=== PATIENT | female | born 1985 | race Caucasian/White ===

== ENCOUNTER 2016-08-02 21:32 | Emergency (ER) | payer BC, MEDICAID, OTHER ==
[2016-08-02] MEDS ORDERED: hydrOXYzine HCL TAB* 50 MG PO ONE (22:22)
[2016-08-02] MEDS ORDERED: hydrOXYzine HCL TAB* 25 MG ONE (22:28)
[2016-08-02 22:33] LABS: Urine Bacteria 2+ (Absent); Urine Bilirubin Negative (Negative); Urine Glucose Negative (Negative); Urine Nitrite Negative (Negative)
[2016-08-02] MEDS ORDERED: hydrOXYzine HCL TAB* 25 MG PO ONE (23:00)
[2016-08-02 23:02] LABS: Hematocrit 40 % (35-47); Hemoglobin 13.7 g/dl (12.0-16.0); Mean Corpuscular HGB Conc 35 g/dl (31-36); Mean Corpuscular Hemoglobin 33 pg (27-31); Mean Corpuscular Volume 96 fL (80-97); Mean Platelet Volume 7 um3 (7.4-10.4); Red Blood Count 4.13 10^6/ul (4.0-5.4); Red Cell Distribution Width 12 % (10.5-15); White Blood Count 7.4 10^3/ul (3.5-10.8)
[2016-08-02 23:17] VITALS: BP 118/57
[2016-08-02 23:19] LABS: ALT 12 U/L (7-52); AST 14 U/L (13-39); Albumin 3.9 g/dL (3.2-5.2); Alkaline Phosphatase 30 U/L (34-104); BUN/Creatinine Ratio 11.3 (8-20); Blood Urea Nitrogen 8 mg/dL (6-24); CO2 Carbon Dioxide 23 mmol/L (22-32); Calcium 9.1 mg/dL (8.6-10.3); Chloride 111 mmol/L (101-111); EGFR African American 126.1 (>60); Globulin 2.6 g/dL (2-4); Glucose 92 mg/dL (70-100); Sodium 131 mmol/L (133-145); Total Protein 6.5 g/dL (6.4-8.9)
[2016-08-02 23:27] LABS: Acetaminophen < 15 mcg/mL; Alcohol < 10 mg/dL (<10); Salicylate < 2.50 mg/dL (<30)
[2016-08-02 23:31] LABS: Anion Gap -3 mmol/L (2-11); Potassium 2.7 mmol/L (3.5-5.0)
[2016-08-02] MEDS ORDERED: Potassium Chlor TAB* 20 MEQ TAB.ER PO ONE (23:34)
--- NOTE | 2016-08-02 23:37 | ED ---
Kristine Cadet Claudia, scribed for Christofer Falcon MD on 08/02/16 at 2217 . Psychiatric Complaint - HPI Summary HPI Summary: 30 year old female presents to the ED with anxiety and panic attacks. Pt notes PMHx of anxiety. Pt began Zoloft 5 days ago per Rx . She notes that she has been suffering constant panic attacks for the past couple of days. Pt notes she even suffered a syncopal episode from the anxiety this week. She has been to [facility] several times this week, along with her PCP however nothing has seemed to help with her Sx. She went to her PCp on Thursday trying to get put on a different Rx but he would not prescribe atarax. Pt notes her anxiety is so bad that she is unable to live her life. Pt states CP and SOB accompanying the anxiety. - History Of Current Complaint Chief Complaint: EDMentalHealth Time Seen by Provider: 08/02/16 22:06 Hx Obtained From: Patient Hx Last Menstrual Period: 03/15/15, PT STATES SHE WORKS OUT VERY HARD AND DOES NOT HAVE REG PERIODS. Onset/Duration: Sudden Onset, Lasting Days, Still Present Timing: Constant Character: Anxious Aggravating Factor(s): Nothing Alleviating Factor(s): Nothing Has Suicidal: Denies: Thoughts - Allergies/Home Medications Allergies/Adverse Reactions: Allergies Allergy/AdvReac Type Severity Reaction Status Date / Time Penicillins Allergy Unknown Unknown Verified 05/06/15 10:13 Reaction Details PMH/Surg Hx/FS Hx/Imm Hx Previously Healthy: Yes Endocrine/Hematology History: Denies: Hx Diabetes Neurological History: Reports: Other Neuro Impairments/Disorders - Vertigo Psychiatric History: Reports: Hx Anxiety, Hx Depression, Hx Post Traumatic Stress Disorder, Hx Bipolar Disorder Denies: Hx Eating Disorder, Hx of Violent Episodes Against Others Infectious Disease History: No Infectious Disease History: Denies: Traveled Outside the [place] in Last 30 Days - Family History Known Family History: Positive: Diabetes, Other - bipolar disorder. PTSD grandfather, [place], anxiety, depression - Social History Occupation: Unemployed Lives: With Family Alcohol Use: None Substance Use Type: Reports: None Hx Tobacco Use: No Smoking Status (MU): Never Smoked Tobacco Review of Systems Constitutional: Negative Negative: Fever, Chills Eyes: Negative ENT: Negative Positive: Chest Pain Positive: Shortness Of Breath Gastrointestinal: Negative Genitourinary: Negative Musculoskeletal: Negative Skin: Negative Neurological: Negative Positive: Anxious All Other Systems Reviewed And Are Negative: Yes Physical Exam - Summary Physical Exam Summary: VITAL SIGNS: Reviewed. GENERAL: Patient is a well developed and nourished female who is lying comfortable in the stretcher. Patient is not in any acute respiratory distress. HEAD AND FACE: No signs of trauma. No ecchymosis, hematomas or skull depressions. No sinus tenderness. EYES: PERRLA, EOMI x 2, No injected conjunctiva, no nystagmus. EARS: Hearing grossly intact. Ear canals and tympanic membranes are within normal limits. MOUTH: Oropharynx within normal limits. NECK: Supple, trachea is midline, no adenopathy, no JVD, no carotid bruit, no c- spine tenderness, neck with full ROM. CHEST: Symmetric, no tenderness at palpation LUNGS: Clear to auscultation bilaterally. No wheezing or crackles. CVS: Regular rate and rhythm, S1 and S2 present, no murmurs or gallops appreciated. ABDOMEN: Soft, non-tender. No signs of distention. No rebound no guarding, and no masses palpated. Bowel sounds are normal. EXTREMITIES: FROM in all major joints, no edema, no cyanosis or clubbing. NEURO: Alert and oriented x 3. No acute neurological deficits. Speech is normal and follows commands. SKIN: Dry and warm PSYCH: no depressed mood, denies any suicidal thoughts or plan. No homicidal thoughts or plan. No signs of psychosis or pressure speech. No tangential speech. Patient seems very anxious and nervous. Triage Information Reviewed: Yes Vital Signs On Initial Exam: Initial Vitals Temp Pulse Resp BP Pulse Ox 98.4 F 78 16 121/65 100 08/02/16 21:40 08/02/16 21:40 08/02/16 21:40 08/02/16 21:40 08/02/16 21:40 Vital Signs Reviewed: Yes Diagnostics - Vital Signs Vital Signs Temp Pulse Resp BP Pulse Ox 08/02/16 21:40 98.4 F 78 16 121/65 100 - Laboratory Lab Results: Lab Results 08/02/16 08/02/16 Range/Units 22:22 22:50 WBC 7.4 (3.5-10.8) 10^3/ul RBC 4.13 (4.0-5.4) 10^6/ul Hgb 13.7 (12.0-16.0) g/dl Hct 40 (35-47) % MCV 96 (80-97) fL MCH 33 H (27-31) pg MCHC 35 (31-36) g/dl RDW 12 (10.5-15) % Plt Count 204 (150-450) 10^3/ul MPV 7 L (7.4-10.4) um3 Neut % (Auto) 66.1 (38-83) % Lymph % (Auto) 21.3 L (25-47) % [place] % (Auto) 10.2 H (1-9) % Eos % (Auto) 2.2 (0-6) % Baso % (Auto) 0.2 (0-2) % Absolute Neuts (auto) 4.9 (1.5-7.7) 10^3/ul Absolute Lymphs (auto) 1.6 (1.0-4.8) 10^3/ul Absolute Monos (auto) 0.8 (0-0.8) 10^3/ul Absolute Eos (auto) 0.2 (0-0.6) 10^3/ul Absolute Basos (auto) 0 (0-0.2) 10^3/ul Absolute Nucleated RBC 0 10^3/ul Nucleated RBC % 0 Urine Color Yellow Urine Appearance Clear Urine pH 7.0 (5-9) Ur Specific [place] 1.009 L (1.010-1.030) Urine Protein Negative (Negative) Urine Ketones Negative (Negative) Urine Blood Negative (Negative) Urine Nitrate Negative (Negative) Urine Bilirubin Negative (Negative) Urine Urobilinogen Negative (Negative) Ur Leukocyte Esterase Trace H (Negative) Urine WBC (Auto) Trace(0-5/hpf) (Absent) Urine RBC (Auto) Trace(0-2/hpf) (Absent) Ur Squamous Epith Cells Present H (Absent) Urine Bacteria 2+ H (Absent) Urine Glucose Negative (Negative) Result Diagrams: 08/02/16 22:50 08/02/16 22:50 Lab Statement: Any lab studies that have been ordered have been reviewed, and results considered in the medical decision making process. - EKG 22:11 Cardiac Rate: NL - NSR: 69 beats/min EKG Rhythm: Sinus Rhythm ST Segment: Normal - No ST elevation Course/Dx - Course Assessment/Plan: Presents with sever anxiety also CP and SOB. She has been dealing with Sx for the past 28 years. For the last 7 she has been taking klonopine, she has been not been taking klonopine for the past 7 months. Test results are within nml limits, except for decreased K+ for which she was given potasium chloride. troponin 0.00, EKG NSR with no ST elevation. The pt was given atarax for anxiety they decline ativan. At this point the pt is medically cleared and is awaiting MHE. She will be signed out to Dr. Vaz waiting for the MHE and disposition. - Differential Dx/Clinical Impression Provider Diagnosis: Anxiety - Physician Notifications Patient Is Medically Stable For: Psych Evaluation - medically cleared at 22:18 Discharge - Discharge Plan Condition: Stable Disposition: OTHER Discharge Disposition Comment: Signed out to Dr. Vaz. Referrals: Non Staff,Doctor [Primary Care Provider] - The documentation as recorded by the Kristine medina Claudia accurately reflects the service I personally performed and the decisions made by me, Christofer Falcon MD.
[2016-08-02 23:38] LABS: TSH (Thyroid Stimulating Horm) 2.98 mcIU/mL (0.34-5.60)
[2016-08-03] MEDS ORDERED: hydrOXYzine HCL TAB* 50 MG PO ONE (02:11)
[2016-08-03] MEDS ORDERED: Loperamide CAP* 2 MG PO ONE (05:43)
[2016-08-03] MEDS ORDERED: Potassium Chloride LIQUID* 20 MEQ PACKET PO ONE (05:43)
[2016-08-03] MEDS ORDERED: Potassium Chlor TAB* 20 MEQ TAB.ER PO ONE (06:11)
== END 2016-08-03 07:02 | disposition home or self-care (01) ==
LOC: ED 21:32
DX: F41.9 Anxiety disorder, unspecified (principal); R07.89 Other chest pain; R06.02 Shortness of breath; Z88.0 Allergy status to penicillin
CPT/HCPCS: 36415; 80053; 80320; 80329; 81003; 81015; 84443; 84484; 85025; 87086; 93005; 99284; A9270-GY; G0480

== ENCOUNTER 2017-06-27 10:38 | Emergency (ER) | payer OTHER ==
--- NOTE | 2017-06-27 12:42 | UC ---
General HPI - HPI Summary HPI Summary: per editor managing director "pt here today d/t noticing that her blood pressure has been on the low side for the past 2-3 days. She monitors her B/P daily and has been taking her B/P "approx 10 times in the past 2 days." She states feeling light headed and occ. will feel dizzy, no symptoms at triage. She states no fever, vomitting or diarrhea or any other symptoms. She states both parents are currently hospitalized for illness/surgery and "she is very stressed out". No thought of harm to her self or others. " -shew as dx'd with panic and takes signfiicant amts of xanax. she had elevated BP of 139 systolic with a panic attack and givena wrist BP monitor to check BPs when she feels this way. she feels comfoertable when BP is > 115. SHe just had personal training certificate test 3 days ago and was very stressed about it and passed. BP was nml that day. she drove to [place] and back since then and has been exhausted b/c little sleep as well. + h/o vertigo and has had some of that come back as well, but feels this isnt the problem. she was dx'd with this while she was in rehab in the past. -reviewed wrist cuff that she brings in, most are low 110 systolics. lowest seen is 109. -she has read obessively about this online. -she went to pharmacy befoer coming here. pharmacist suggested taking ibuprofen and coffee to raise BP. she took 200mgs and drank a coffee. no water yet today. he adv her to come to and told her about a pill that can be prescribed. -she denies syncope or near syncope. -she states that she is obsessed w/ exercising and she cant not go to the gym daily. - History of Current Complaint Chief Complaint: UCGeneralIllness Stated Complaint: DIZZINESS/LIGHTHEADEDNESS Time Seen by Provider: 06/27/17 12:39 Hx Last Menstrual Period: 10 mos ago-is seeing a registered route associate doc for this issue - Allergy/Home Medications Allergies/Adverse Reactions: Allergies Allergy/AdvReac Type Severity Reaction Status Date / Time Penicillins Allergy Unknown Unknown Verified 05/06/15 10:13 Reaction Details Home Medications: Home Medications ALPRAZolam TAB* [Xanax TAB*] 0.25 mg PO TID 06/27/17 [History Confirmed 06/27/17 ] Alprazolam XR (NF) [Xanax XR (NF)] 2 mg PO BID 06/27/17 [History Confirmed 06/27] Escitalopram Oxalate [Lexapro 10 mg] 2.5 mg PO DAILY 06/27/17 [History Confirmed 06/27/17] PMH/Surg Hx/FS Hx/Imm Hx Previously Healthy: Yes Psychological History: Anxiety - Surgical History Surgical History: None - Family History Known Family History: Positive: Diabetes, Other - bipolar disorder. PTSD grandfather, [place], anxiety, depression - Social History Alcohol Use: None Substance Use Type: None Smoking Status (MU): Never Smoked Tobacco - Immunization History Most Recent Influenza Vaccination: Never Most Recent Tetanus Shot: December 2015 Most Recent Pneumonia Vaccination: Never Review of Systems Constitutional: Negative Skin: Negative Eyes: Negative ENT: Negative Respiratory: Negative Cardiovascular: Negative Gastrointestinal: Negative Genitourinary: Negative Motor: Negative Neurovascular: Negative Musculoskeletal: Negative Neurological: Other - lightheaded at times Psychological: Anxious Is Patient Immunocompromised?: No All Other Systems Reviewed And Are Negative: Yes Physical Exam Triage Information Reviewed: Yes Appearance: Well-Appearing, No Pain Distress, Well-Nourished Vital Signs: Initial Vital Signs Temp 97.9 F 06/27/17 11:19 Pulse 52 06/27/17 11:19 Resp 14 06/27/17 11:19 BP 111/73 06/27/17 11:19 Pulse Ox 100 06/27/17 11:19 Vital Signs Reviewed: Yes Eye Exam: Normal ENT Exam: Normal ENT: Positive: Pharynx normal Dental Exam: Normal Neck exam: Normal Neck: Positive: Supple, Nontender, No Lymphadenopathy Respiratory Exam: Normal Respiratory: Positive: Lungs clear, Normal breath sounds, No respiratory distress Cardiovascular Exam: Normal Cardiovascular: Positive: RRR, No Murmur, Pulses Normal Abdominal Exam: Normal Abdomen Description: Positive: Nontender, Soft Musculoskeletal Exam: Normal Neurological Exam: Normal Psychological Exam: Normal Skin Exam: Normal Course/Dx - Course Course Of Treatment: I sepnt quite a bit of time reassuring her. we discussed possibility of vaso-vagal reaction as well. advised to get down to the floor and elevate legs immediately if these symptoms occur. adv no driving with these sx. -discussed work up is most appropriately done through PCP as labs are indicated. BP manual recheck Left Lg 114/68. -she feels reassured that SBP > 110 is very safe range and is not cosidered problematic unless at least 90. - adv not to drink too much water (hasnt had any today). limit to 64 ozs. - discussed that giving medication (eg mididrine) is not indicated at this time w/ o further w/u, eval, labs etc. also, it is contraindictaed w/ high bPs (that she has gotten w/ panic attacks). -eating high salt snacks such as pretzels and salted nuts can help. -she feels better and reassured. - Differential Dx - Multi-Symptom Differential Diagnoses: Other - dizziness/hypotension Provider Diagnoses: dizziness Discharge - Discharge Plan Condition: Stable Disposition: HOME Patient Education Materials: Hypotension (ED) Forms: *Work Release Referrals: Delvis SPEARS,Robbie [Primary Care Provider] - 2 Days Additional Instructions: We talked quite a bit about your symptoms and blood pressure. Drink 64 oz water daily and no more than 1 bottle of gatorade per day (as you are doing). Work up through your primary care physician is warranted with blood work and even perhaps a cardiology referral for further evaluation/reassurance. Keep your appt on 06/29 that is already scheduled. -If your symptoms worsen, we talked about going to the ER.
[2017-06-27 13:18] VITALS: BP 114/68
== END 2017-06-27 13:34 | disposition home or self-care (01) ==
LOC: UCCORT 10:38
DX: R42 Dizziness and giddiness (principal); Z88.0 Allergy status to penicillin; F41.9 Anxiety disorder, unspecified
CPT/HCPCS: 99211; G0463

== ENCOUNTER 2017-08-03 16:38 | Emergency (ER) | payer OTHER ==
[2017-08-03 18:02] VITALS: BP 111/66
--- NOTE | 2017-08-03 18:13 | UC ---
Complaint Female HPI - HPI Summary HPI Summary: Pt c/o of painful urination X 2 days. Post intercourse. Also, c/o tender area on right labia. Pt states that she shaves her genital pubic heair and used a new razor and thinks she had cut /"nicked" her labia - History Of Current Complaint Stated Complaint: URINARY COMPLAINT Time Seen by Provider: 08/03/17 18:00 Hx Obtained From: Patient Hx Last Menstrual Period: DUE ANYTIME ?: No Onset/Duration: Sudden Onset Timing: Intermittent Severity Initially: Mild Severity Currently: Mild Character: Burning Aggravating Factor(s): Urination Associated Signs And Symptoms: Positive: Negative - Allergies/Home Medications Allergies/Adverse Reactions: Allergies Allergy/AdvReac Type Severity Reaction Status Date / Time Penicillins Allergy Unknown Unknown Verified 08/03/17 18:02 Reaction Details PMH/Surg Hx/FS Hx/Imm Hx Previously Healthy: Yes - Surgical History Surgical History: None - Family History Known Family History: Positive: Diabetes, Other - bipolar disorder. PTSD grandfather, [place], anxiety, depression - Social History Occupation: Employed Full-time Lives: With Family Alcohol Use: None Substance Use Type: None Smoking Status (MU): Never Smoked Tobacco Have You Smoked in the Last Year: No - Immunization History Most Recent Influenza Vaccination: Never Most Recent Tetanus Shot: December 2015 Most Recent Pneumonia Vaccination: Never Review of Systems Constitutional: Negative Skin: Other - acute wound Eyes: Negative ENT: Negative Respiratory: Negative Cardiovascular: Negative Gastrointestinal: Negative Genitourinary: Dysuria Motor: Negative Neurovascular: Negative Musculoskeletal: Negative Neurological: Negative Psychological: Negative Is Patient Immunocompromised?: No All Other Systems Reviewed And Are Negative: Yes Physical Exam Triage Information Reviewed: Yes Appearance: Well-Appearing Vital Signs: Initial Vital Signs Temp 98.4 F 08/03/17 17:57 Pulse 55 08/03/17 17:57 Resp 18 08/03/17 17:57 BP 111/66 08/03/17 17:57 Pulse Ox 100 08/03/17 17:57 Vital Signs Reviewed: Yes Eye Exam: Normal ENT Exam: Normal Dental Exam: Normal Neck exam: Normal Respiratory Exam: Normal Cardiovascular Exam: Normal Abdominal Exam: Normal Musculoskeletal Exam: Normal Neurological Exam: Normal Psychological Exam: Normal Skin Exam: Other - small open, tender area on mid right labia. No vessicles, drainage, Complaint Female Dx - Course Course Of Treatment: I discussed with th ept the possibility of STD exposure and need to follow up with her PCP. At time of examination, the sore on her right labia was not vessicular, no drainage, no induration, and pt reported that she had used a new razor to shave her pubic hair and remembers "nicking" herself while shaving. Pt declined blood work and wound did not have drainage - Differential Dx/Diagnosis Differential Diagnosis/HQI/PQRI: Sexually Transmitted Disease, Urinary Tract Infection Provider Diagnoses: Dysuria. STD exposure? acute wound. Herpes simplex 1 or 2 ? Discharge - Discharge Plan Condition: Stable Disposition: HOME Prescriptions: Phenazopyridine TAB* [Pyridium 100 mg TAB*] 100 mg PO Q8H #3 tab Patient Education Materials: Acute Wound Care (ED), Dysuria (ED), Acute Wounds (ED) Referrals: Delvis SPEARS,Robbie [Primary Care Provider] - If Needed Additional Instructions: Please follow up with your PCP or return to clinic as needed.
== END 2017-08-03 18:49 | disposition home or self-care (01) ==
LOC: UCCORT 16:38
DX: R30.0 Dysuria (principal); S31.40XA Unspecified open wound of vagina and vulva, initial encounter; X58.XXXA Exposure to other specified factors, initial encounter; Y93.9 Activity, unspecified; Z88.0 Allergy status to penicillin; Z11.3 Encounter for screening for infections with a predominantly sexual mode of transmission; Z32.02 Encounter for pregnancy test, result negative; Y92.9 Unspecified place or not applicable
CPT/HCPCS: 81003; 84702; 87491; 87591; 99212; G0463

== ENCOUNTER 2017-09-14 13:04 | Emergency (ER) | payer OTHER ==
[2017-09-14 14:05] VITALS: BP 110/70
[2017-09-14] MEDS ORDERED: Ibuprofen ADULT LIQ* 600 MG/30 ML UDC PO ONE (14:18)
--- NOTE | 2017-09-14 14:23 | UC ---
UC General HPI - HPI Summary HPI Summary: pt c/o sudden PERES, head congestion, sore throat, bodyaches, cough and fever. onset thursday pm. no cp or sob. - History of Current Complaint Chief Complaint: UCRespiratory Stated Complaint: SORE THROAT Time Seen by Provider: 09/14/17 13:58 Hx Obtained From: Patient Hx Last Menstrual Period: unknown Onset/Duration: Sudden Onset Timing: Constant Pain Intensity: 9 Associated Signs & Symptoms: Positive: Cough, Fever, Headache. Negative: Chest Pain, Diarrhea, Dysuria, Nausea, SOB, Vomiting, Wheezing, Weakness - Allergy/Home Medications Allergies/Adverse Reactions: Allergies Allergy/AdvReac Type Severity Reaction Status Date / Time Penicillins Allergy Unknown Verified 09/14/17 13:51 Reaction Details Home Medications: Home Medications Cetirizine* [ZyrTEC 10 MG TAB*] 10 mg PO DAILY 09/14/17 [History Confirmed 09/14] PMH/Surg Hx/FS Hx/Imm Hx Psychological History: Anxiety, Depression - Surgical History Surgical History: None - Family History Known Family History: Positive: Diabetes, Other - bipolar disorder. PTSD grandfather, [place], anxiety, depression - Social History Occupation: Employed Full-time Alcohol Use: None Substance Use Type: Prescribed Smoking Status (MU): Never Smoked Tobacco Have You Smoked in the Last Year: No - Immunization History Most Recent Influenza Vaccination: Never Most Recent Tetanus Shot: December 2015 Most Recent Pneumonia Vaccination: Never Vaccination Up to Date: Yes Review of Systems Constitutional: Fever, Chills, Fatigue Skin: Negative Eyes: Negative ENT: Sore Throat, Sinus Congestion Respiratory: Cough Cardiovascular: Negative Gastrointestinal: Negative Genitourinary: Negative Motor: Negative Neurovascular: Negative Musculoskeletal: Negative Neurological: Headache Psychological: Negative Is Patient Immunocompromised?: No All Other Systems Reviewed And Are Negative: Yes Physical Exam Triage Information Reviewed: Yes Appearance: Well-Appearing Vital Signs: Initial Vital Signs Temp 99.5 F 09/14/17 13:56 Pulse 94 09/14/17 13:56 Resp 18 09/14/17 13:56 BP 110/70 09/14/17 13:56 Pulse Ox 100 09/14/17 13:56 Vital Signs Reviewed: Yes Eye Exam: Normal ENT: Positive: Pharyngeal erythema, Nasal congestion, TMs normal, Uvula midline. Negative: Tonsillar swelling, Tonsillar exudate, Trismus, Muffled voice, Hoarse voice, Sinus tenderness Neck: Positive: Supple, Tenderness @ - peritonsilar nodes, Enlarged Nodes @ - peritonsilar Respiratory: Positive: Lungs clear, Normal breath sounds, No respiratory distress Cardiovascular: Positive: RRR, No Murmur, Pulses Normal Abdomen Description: Positive: Nontender, No Organomegaly, Soft Bowel Sounds: Positive: Present Musculoskeletal: Positive: No Edema Neurological: Positive: Alert Psychological: Positive: Age Appropriate Behavior Skin Exam: Normal Diagnostics - Laboratory Diagnostic Studies Completed/Ordered: rapid strep=neg. influenza A + Course/Dx - Course Course Of Treatment: + influenza A. will tx tamiflu. - Differential Dx - Multi-Symptom Provider Diagnoses: Influenza A Discharge - Discharge Plan Condition: Stable Disposition: HOME Prescriptions: Oseltamivir CAP* [Tamiflu CAP*] 75 mg PO BID 5 Days #10 cap Patient Education Materials: Influenza (ED) Forms: *Work Release Referrals: Delvis SPEARS,Robbie [Primary Care Provider] - 7 Days
--- OUTSIDE RECORDS SUMMARY | 2017-09-14 14:37 | XMS REPORT ---
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 Robbie Edmondson MD Primary Care Physician Unavailable Payers Type Date Identification Numbers Payment Provider Subscriber Commercial Policy Number: [id number] [facility] Amy Ramon PayID: [id number] [address] [place] [id number] Problems Description No Information Social History Type Date Description Comments Smoke-Free Home is smoke-free Smoking Patient has never smoked Allergies, Adverse Reactions, Alerts Date Description Reaction Status Severity Comments 09/08/2017 Penicillin active Medications Medication Date Status Form Strength Qnty SIG Indications Ordering Provider Xanax XR 000000 Active Tablets ER 2mg Unknown 00 24HR Xanax 0000 Active Tablets 1mg Unknown 00 Escitalopram Active Tablets 5mg 1/2 Unknown Oxalate 00 tab qd Vital Signs Date Vital Result Comment 09/08/2017 BP Systolic 125 mmHg BP Diastolic 75 mmHg Height 62 inches 5'2" Weight 116.00 lb BMI (Body Mass Index) 21.2 kg/m2 Heart Rate 66 /min Respiratory Rate 16 /min Body Temperature 98.5 F O2 % BldC Oximetry 98 % Results Description No Information Procedures Description No Information Plan of Care No Information Available
--- OUTSIDE RECORDS SUMMARY | 2017-09-14 14:37 | XMS REPORT ---
:1985 External Reference #:[id number] Author Organization [facility] Address [address] [place] [address] Phone [phone] Care Team Providers Name Role Phone Robbie Edmondson MD Care Team Information Alternative Dispute Resolution Mediator Unavailable Robbie Edmondson MD Primary Care Physician Unavailable Payers Type Date Identification Numbers Payment Provider Subscriber Commercial Policy Number: [id number] [facility] Amy Ramon PayID: [id number] [address] [place] [address] Problems Date Description Provider Status Onset: 09/08/2017 Allergic rhinitis Jude [facility] MD Active Onset: 09/08/2017 Allergic rhinitis due to pollen Jude [facility] MD Active Social History Type Date Description Comments Smoke-Free Home is smoke-free Pets 1 cat Smoking Patient has never smoked Smoking No Second Hand Smoke Exposure Allergies, Adverse Reactions, Alerts Date Description Reaction Status Severity Comments 09/08/2017 Penicillin active Medications Medication Date Status Form Strength Qnty SIG Indications Ordering Provider Singulair 09/08/ Active Tablets 10mg 30tabs 10mg by J30.1 Jude Arechiga mouth Julissa [facility] MD daily at bedtime Cetirizine HCL 09/08/ Active Tablets 10mg 30tabs take one J30.1 Jude Arechiga tablet po Julissa [facility] MD daily prn Xanax XR 00/00/ Active Tablets 2mg Unknown 0000 ER 24HR Xanax 00/00/ Active Tablets 1mg Unknown 0000 Escitalopram 00/00/ Active Tablets 5mg 1/2 tab Unknown Oxalate 0000 qd Vital Signs Date Vital Result Comment 09/08/2017 BP Systolic 125 mmHg BP Diastolic 75 mmHg Height 62 inches 5'2" Weight 116.00 lb BMI (Body Mass Index) 21.2 kg/m2 Heart Rate 66 /min Respiratory Rate 16 /min Body Temperature 98.5 F O2 % BldC Oximetry 98 % Results Test Date Test Result H/L Range Note Order 09/08/2017 Skin Test Seasonal and Environmental <pending> Procedures Date CPT Code Description Status 09/08/2017 07744 Allergy Tests Percutaneous W/ Allergenic Extracts Completed Plan of Care 09/08/2017 - Jude [facility] MDJ30.1 Allergic rhinitis due to pollenNew Medication:Singulair 10 mgCetirizine HCL 10 mgJ30.89 Other allergic rhinitis
== END 2017-09-14 15:02 | disposition home or self-care (01) ==
LOC: UCCORT 13:04
DX: J10.1 Influenza due to other identified influenza virus with other respiratory manifestations (principal)
CPT/HCPCS: 87502; 87651; 99212; A9270-GY; G0463

== ENCOUNTER 2017-12-27 09:55 | Emergency (ER) | payer OTHER ==
[2017-12-27 10:41] VITALS: BP 100/62
--- NOTE | 2017-12-27 11:09 | UC ---
Complaint Female HPI - HPI Summary HPI Summary: patient has had some burning and itching on the genital area over the last week , developed a discharge and attempted monistat without relief. only use the one dose - History Of Current Complaint Chief Complaint: [facility] Stated Complaint: PERSONAL Time Seen by Provider: 12/27/17 10:49 Hx Obtained From: Patient Hx Last Menstrual Period: due for it in 3 days ?: No Onset/Duration: Sudden Onset, Lasting Days Timing: Lasting Days Severity Initially: Mild Severity Currently: None Pain Intensity: 0 Character: Burning Aggravating Factor(s): Nothing Associated Signs And Symptoms: Positive: Vaginal Discharge - Allergies/Home Medications Allergies/Adverse Reactions: Allergies Allergy/AdvReac Type Severity Reaction Status Date / Time Penicillins Allergy Unknown Verified 12/27/17 10:34 Reaction Details Home Medications: Home Medications Miconazole TOPICAL CREAM 2%* [Monistat 2%*] 1 applic TOPICAL DAILY 12/27/17 [ History Confirmed 12/27/17] PMH/Surg Hx/FS Hx/Imm Hx Previously Healthy: Yes - Surgical History Surgical History: None - Family History Known Family History: Positive: Diabetes, Other - bipolar disorder. PTSD grandfather, [place], anxiety, depression - Social History Alcohol Use: None Substance Use Type: Prescribed Smoking Status (MU): Never Smoked Tobacco Have You Smoked in the Last Year: No - Immunization History Most Recent Influenza Vaccination: Never Most Recent Tetanus Shot: December 2015 Most Recent Pneumonia Vaccination: Never Vaccination Up to Date: Yes Review of Systems Constitutional: Negative Skin: Rash - genital area Eyes: Negative ENT: Negative Respiratory: Negative Cardiovascular: Negative Gastrointestinal: Negative Genitourinary: Vaginal/Penile Itching, Vaginal/Penile Discharge Motor: Negative Neurovascular: Negative Musculoskeletal: Negative Neurological: Negative Psychological: Negative Is Patient Immunocompromised?: No All Other Systems Reviewed And Are Negative: Yes Physical Exam Triage Information Reviewed: Yes Appearance: Well-Appearing, Well-Nourished, Pain Distress Vital Signs: Initial Vital Signs Temp 98.7 F 12/27/17 10:35 Pulse 52 12/27/17 10:35 Resp 16 12/27/17 10:35 BP 100/62 12/27/17 10:35 Pulse Ox 100 12/27/17 10:35 Vital Signs Reviewed: Yes Eye Exam: Normal ENT Exam: Normal Dental Exam: Normal Neck exam: Normal Respiratory Exam: Normal Respiratory: Positive: Chest non-tender, Lungs clear, Normal breath sounds Cardiovascular Exam: Normal Cardiovascular: Positive: RRR, No Murmur, Pulses Normal Abdominal Exam: Normal Abdomen Description: Positive: Nontender, No Organomegaly, Soft Bowel Sounds: Positive: Present Pelvic Exam: Positive: Other - deffered Musculoskeletal Exam: Normal Neurological Exam: Normal Psychological Exam: Normal Skin: Positive: rashes - redness of the groin, Other - swollen lymph node in right femoral area Complaint Female Dx - Course Course Of Treatment: hx obtained, exam performed ,meds reviewed, treated for vaginitis - Differential Dx/Diagnosis Differential Diagnosis/HQI/PQRI: Sexually Transmitted Disease, Urinary Tract Infection, Other - vaginitis Provider Diagnoses: vulvovagintitis Discharge - Sign-Out/Discharge Documenting (check all that apply): Discharge/Admit/Transfer - Discharge Plan Condition: Stable Disposition: HOME Prescriptions: Fluconazole 150 MG (NF) [Diflucan 150 mg (NF)] 150 mg PO ONCE #2 tab Patient Education Materials: Vaginitis (ED) Referrals: Robbie Edmondson MD [Primary Care Provider] - Additional Instructions: 1. use the medication as prescribed 2. I recommend coconut oil topically and the herbal wash as we talked about. 3. FOllow up with any worsening symtpoms or pain. - Billing Disposition and Condition Condition: STABLE Disposition: HOME
== END 2017-12-27 11:20 | disposition home or self-care (01) ==
LOC: UCCORT 09:55
DX: N76.0 Acute vaginitis (principal); Z88.0 Allergy status to penicillin; Z83.3 Family history of diabetes mellitus; Z81.8 Family history of other mental and behavioral disorders; Z80.9 Family history of malignant neoplasm, unspecified
CPT/HCPCS: 99212; G0463

== ENCOUNTER 2018-01-02 17:11 | Emergency (ER) | payer OTHER ==
[2018-01-02 17:24] VITALS: BP 112/68
--- NOTE | 2018-01-02 17:38 | UC ---
Complaint Female HPI - HPI Summary HPI Summary: 1. tick in back of left leg--was attached for less than 24 hours--removed this morning small speck of black remains 2. was treated for vaginal yeast presumptively after a few trials with monistat she tried Diflucan times 2 doses---she has continued vaginal discharge and painful intercourse - History Of Current Complaint Hx Obtained From: Patient Hx Last Menstrual Period: due for it in 3 days ?: No Onset/Duration: Sudden Onset Timing: Constant Pain Intensity: 5 Pain Scale Used: 0-10 Numeric Aggravating Factor(s): [place] Associated Signs And Symptoms: Positive: Vaginal Discharge <Bertha Bolden - Last Filed: 01/02/18 18:38> <Percy Coburn - Last Filed: 01/02/18 20:08> - History Of Current Complaint Chief Complaint: [facility] Stated Complaint: TICK BITE Time Seen by Provider: 01/02/18 17:26 - Allergies/Home Medications Allergies/Adverse Reactions: Allergies Allergy/AdvReac Type Severity Reaction Status Date / Time Penicillins Allergy Unknown Verified 01/02/18 17:24 Reaction Details PMH/Surg Hx/FS Hx/Imm Hx Previously Healthy: No Psychological History: Anxiety - Surgical History Surgical History: None - Family History Known Family History: Positive: Diabetes, Other - bipolar disorder. PTSD grandfather, [place], anxiety, depression - Social History Occupation: Employed Full-time Lives: With Family Alcohol Use: None Substance Use Type: None Smoking Status (MU): Never Smoked Tobacco Have You Smoked in the Last Year: No - Immunization History Most Recent Influenza Vaccination: Never Most Recent Tetanus Shot: December 2015 Most Recent Pneumonia Vaccination: Never Vaccination Up to Date: Yes <Bertha Bolden - Last Filed: 01/02/18 18:38> Review of Systems Constitutional: Negative Skin: Other - tick site back of left leg above her knee Eyes: Negative ENT: Negative Respiratory: Negative Cardiovascular: Negative Gastrointestinal: Negative Genitourinary: Negative, Vaginal/Penile Discharge, Vaginal/Penile Tenderness Motor: Negative Neurovascular: Negative Musculoskeletal: Negative Neurological: Negative Psychological: Negative Is Patient Immunocompromised?: No All Other Systems Reviewed And Are Negative: Yes <Bertha Bolden - Last Filed: 01/02/18 18:38> Physical Exam Triage Information Reviewed: Yes Appearance: Well-Appearing, No Pain Distress, Well-Nourished Vital Signs: Initial Vital Signs Temp 98 F 01/02/18 17:19 Pulse 60 01/02/18 17:19 Resp 16 01/02/18 17:19 BP 112/68 01/02/18 17:19 Pulse Ox 100 01/02/18 17:19 Vital Signs Reviewed: Yes Eye Exam: Normal Eyes: Positive: Conjunctiva Clear ENT Exam: Normal ENT: Positive: Normal ENT inspection, Hearing grossly normal. Negative: Trismus , Muffled voice, Hoarse voice Dental Exam: Normal Neck exam: Normal Neck: Positive: Supple, Nontender Respiratory Exam: Normal Respiratory: Positive: Chest non-tender, No respiratory distress, No accessory muscle use Cardiovascular Exam: Normal Cardiovascular: Positive: RRR, Pulses Normal, Brisk Capillary Refill Abdominal Exam: Normal Abdomen Description: Positive: Nontender, No Organomegaly, Soft. Negative: CVA Tenderness (R), CVA Tenderness (L), Distended, McBurney's Point Tenderness, Peritoneal Signs Pelvic Exam: Positive: Other - Patient refused speculum exam. Patient educated to the potential loss of diagnostic capabilities without checking for cervical motion tenderness or adnexal pain. Patient agreed to that potential risk both and an affIRM and aptima swab were attained from the vagina. Patient was noted to have odors white yellow discharge no sore or open areas externally Musculoskeletal Exam: Normal Musculoskeletal: Positive: Strength Intact, ROM Intact Neurological Exam: Normal Neurological: Positive: Alert, Muscle Tone Normal Psychological Exam: Normal Skin Exam: Other Skin: Positive: Other - small amount of mouth parts remain in left lower posterior thigh <Bertha Bolden - Last Filed: 01/02/18 18:38> Vital Signs: Initial Vital Signs Temp 98 F 01/02/18 17:19 Pulse 60 01/02/18 17:19 Resp 16 01/02/18 17:19 BP 112/68 01/02/18 17:19 Pulse Ox 100 01/02/18 17:19 <Percy Coburn - Last Filed: 01/02/18 20:08> Complaint Female Dx - Course Course Of Treatment: Will send swabs collected from the vagina to the lab. Patient reassured about tick and information given to observe for Lyme was provided. will start patient on Flagyl by mouth twice a day for BV and then treat further as needed. patient encouraged to follow up at [facility] or primary care doctor this week - Differential Dx/Diagnosis Provider Diagnoses: tick bite left posterior thigh, BV <Bertha Bolden - Last Filed: 01/02/18 18:38> Discharge - Sign-Out/Discharge Documenting (check all that apply): Discharge/Admit/Transfer - Billing Disposition and Condition Condition: STABLE Disposition: Home <Bertha Bolden - Last Filed: 01/02/18 18:38> - Billing Disposition and Condition Condition: STABLE Disposition: Home <Percy Coburn - Last Filed: 01/02/18 20:08> - Discharge Plan Condition: Stable Disposition: HOME Prescriptions: metroNIDAZOLE [Flagyl] 500 mg PO BID #13 tablet Patient Education Materials: Bacterial Vaginosis (ED), Tick Bite (ED) Referrals: [facility] [Outside] - 3 Days Delvis SPEARS,Andshalonda [Primary Care Provider] - 5 Days Additional Instructions: Per institutional requirements, I have reviewed the chart, however, I was not consulted specifically or made aware of this patient by the above midlevel provider. I did not personally evaluate, interact with , or disposition this patient.
[2018-01-02] MEDS ORDERED: metroNIDAZOLE TAB* 250 MG PO ONE (18:06)
--- NOTE | 2018-01-05 07:23 | UC ---
- Progress Note Progress Note: deisi call the pt. with her lab results + Trichomona please have the pt. take 2 gm Flagyl (4 tabs one time dose ) she does not need to finish the rest of the Flagyl Discharge - Sign-Out/Discharge Documenting (check all that apply): Discharge/Admit/Transfer - Discharge Plan Condition: Stable Disposition: HOME Prescriptions: metroNIDAZOLE [Flagyl] 500 mg PO BID #13 tablet Patient Education Materials: Bacterial Vaginosis (ED), Tick Bite (ED) Referrals: [facility] [Outside] - 3 Days Delvis SPEARS,Andshalonda [Primary Care Provider] - 5 Days Additional Instructions: Per institutional requirements, I have reviewed the chart, however, I was not consulted specifically or made aware of this patient by the above midlevel provider. I did not personally evaluate, interact with , or disposition this patient. - Billing Disposition and Condition Condition: STABLE Disposition: Home
== END 2018-01-02 18:17 | disposition home or self-care (01) ==
LOC: UCCORT 17:11
DX: S70.362A Insect bite (nonvenomous), left thigh, initial encounter (principal); N76.0 Acute vaginitis; A59.01 Trichomonal vulvovaginitis; B96.89 Other specified bacterial agents as the cause of diseases classified elsewhere; Z88.0 Allergy status to penicillin; W57.XXXA Bitten or stung by nonvenomous insect and other nonvenomous arthropods, initial encounter; Y92.9 Unspecified place or not applicable
CPT/HCPCS: 81003; 84702; 87086; 87480; 87491; 87510; 87591; 87660; 99212; A9270-GY; G0463

== ENCOUNTER 2018-05-07 13:44 | Emergency (ER) | payer OTHER ==
[2018-05-07 14:19] VITALS: BP 119/73
--- NOTE | 2018-05-07 15:27 | ED ---
Throat Pain/Nasal Congestion - HPI Summary HPI Summary: 32 yr old female with onset of sore throat, swollen glands upper anterior neck, fatigue, myalgias since May 04. No drooling. No strider. No other complaints. - History of Current Complaint Chief Complaint: [facility] Time Seen by Provider: 05/07/18 14:59 - Allergies/Home Medications Allergies/Adverse Reactions: Allergies Allergy/AdvReac Type Severity Reaction Status Date / Time Penicillins Allergy Unknown Verified 05/07/18 14:15 Reaction Details PMH/Surg Hx/FS Hx/Imm Hx Endocrine/Hematology History: Denies: Hx Diabetes Neurological History: Reports: Other Neuro Impairments/Disorders - Vertigo Psychiatric History: Reports: Hx Anxiety, Hx Depression, Hx Post Traumatic Stress Disorder, Hx Bipolar Disorder Denies: Hx Eating Disorder, Hx of Violent Episodes Against Others Infectious Disease History: No Infectious Disease History: Reports: History Other Infectious Disease Denies: Traveled Outside the [place] in Last 30 Days - Family History Known Family History: Positive: Diabetes, Other - bipolar disorder. PTSD grandfather, [place], anxiety, depression - Social History Occupation: Employed Full-time Alcohol Use: None Substance Use Type: Reports: None Hx Tobacco Use: No Smoking Status (MU): Never Smoked Tobacco Have You Smoked in the Last Year: No Review of Systems Positive: Fatigue Positive: Sore Throat Positive: Myalgia All Other Systems Reviewed And Are Negative: Yes Physical Exam Triage Information Reviewed: Yes Vital Signs On Initial Exam: Initial Vitals Temp Pulse Resp BP Pulse Ox 98.3 F 61 15 119/73 100 05/07/18 14:13 05/07/18 14:13 05/07/18 14:13 05/07/18 14:13 05/07/18 14:13 Vital Signs Reviewed: Yes Appearance: Positive: Well-Appearing, No Pain Distress Skin: Positive: Warm, Skin Color Reflects Adequate Perfusion Head/Face: Positive: Normal Head/Face Inspection Eyes: Positive: EOMI ENT: Positive: Pharyngeal erythema - with exudate on tonsil and soft palate, TMs normal, Tonsillar exudate. Negative: Muffled voice, Hoarse voice Neck: Positive: Nontender Respiratory/Lung Sounds: Positive: Clear to Auscultation, Breath Sounds Present Cardiovascular: Positive: RRR. Negative: Murmur Abdomen Description: Negative: Distended Musculoskeletal: Positive: Strength/ROM Intact Neurological: Positive: Sensory/Motor Intact, Alert, Oriented to Person Place, Time, CN Intact II-III Psychiatric: Positive: Normal - [place] Coma Scale Best Eye Response: 4 - Spontaneous Best Motor Response: 6 - Obeys Commands Best Verbal Response: 5 - Oriented Coma Scale Total: 15 Diagnostics - Vital Signs Vital Signs Temp Pulse Resp BP Pulse Ox 05/07/18 14:13 98.3 F 61 15 119/73 100 - Laboratory Lab Statement: Any lab studies that have been ordered have been reviewed, and results considered in the medical decision making process. EENT Course/Dx - Course Course Of Treatment: 32 yr old female with sore throat, neg strep, monospot sent. DC home. - Diagnoses Provider Diagnoses: Pharyngitis Discharge - Sign-Out/Discharge Documenting (check all that apply): Patient Departure All imaging exams completed and their final reports reviewed: No Studies - Discharge Plan Condition: Good Disposition: HOME Patient Education Materials: Pharyngitis (ED) Referrals: [facility] SPEARS,Robbie [Primary Care Provider] - 2 Days - Billing Disposition and Condition Condition: GOOD Disposition: Home
== END 2018-05-07 16:20 | disposition home or self-care (01) ==
LOC: UCCORT 13:44
DX: J02.9 Acute pharyngitis, unspecified (principal); Z88.0 Allergy status to penicillin
CPT/HCPCS: 36415; 86308; 87651; 99211; G0463

== ENCOUNTER 2018-07-26 09:24 | Emergency (ER) | payer OTHER ==
--- OUTSIDE RECORDS SUMMARY | 2018-07-26 10:23 | XMS REPORT ---
:1985 External Reference #:[id number] [facility] 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 Active Onset: 04/30/2016 Anxiety state Robbie Mckeon M.D. Active Onset: 04/30/2016 Taking medication Robbie Mckeon M.D. Active Onset: 04/30/2016 Encounter for screening for nutritional Robbie Mckeon M.D. Active disorder Onset: 05/28/2016 Coordination problem Robbie Mckeon M.D. Active Onset: 07/07/2016 Epileptic vertigo Robbie Mckeon M.D. Active Onset: 07/30/2016 Elevated blood-pressure reading without Robbie Mckeon M.D. Active diagnosis of hypertension Onset: 12/10/2016 Headache Robbie Mckeon M.D. Active Onset: 02/05/2017 Irritable bowel syndrome with diarrhea Robbie Mckeon M.D. Active Onset: 02/13/2017 Feliberto hematuria Robbie Mckeon M.D. Active Onset: 02/13/2017 Abdominal pain Robbie Mckeon M.D. Active Onset: 07/08/2017 Acute sinusitis Robbie Mckeon M.D. Active Onset: 07/08/2017 Migraine without aura, not refractory Robbie Mckeon M.D. Active Onset: 09/29/2017 Acute upper respiratory infection, Robbie Mckeon M.D. Active unspecified Onset: 05/14/2018 Allergic rhinitis Robbie Mckeon M.D. Active Onset: 05/14/2018 Malaise and fatigue Robbie Mckeon M.D. 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's/IADL's exercises daily, independent with all ADL's Cigarette Use Never Smoked Cigarettes ETOH Use Currently consumes alcohol socially Smoking Patient has never smoked Daily Caffeine Patient consumes minimal amounts of caffeine Allergies, Adverse Reactions, Alerts Date Description Reaction Status Severity Comments 04/30/2016 Amoxicillin active nausea 05/05/2016 Penicillins active Medications Medication Date Status Form Strength Qnty SIG Indications Ordering Provider Amitiza 07/07/ Active Capsules 8mcg 30caps 1 po K59.00 Rosalind, 2018 daily MD Jayleen Fluticasone 03/17/ Active Suspension 50mcg/Act 16gm 1 spray J30.9 Rosalind, Propionate 2017 each MD Jayleen nostril twice a day prn Alprazolam ER 00/ Active Tablets ER 2mg 1 by Unknown 0000 24HR mouth twice daily Alprazolam / Active Tablets 1mg take 1 Unknown 0000 tablet three times a day if needed 06/29/17 Pt states she's taking 0.25mg at midday & 0.25mg at hs Loryna 00/00/ Active Tablets 3-0.02mg 1 by Unknown 0000 mouth every day Escitalopram / Active Tablets 20mg takes Unknown Oxalate 0000 0.25mg by mouth at bedtime Emergency / Active Packet 1 packet Unknown Vitamin C 0000 daily Flovent HFA / Active Aerosol 110mcg/Act inhale 2 Unknown 0000 puffs twice a day With Spacer Linzess 07/07/ Hx Capsules 72mcg 30caps 1 po K59.00 Rosalind, 2017 - daily 30 MD Jayleen 07/07/ 2017 prior to first meal of the day Doxycycline 05/14/ Hx Tablets 100mg 20tabs 1 tab by J06.9 Ligia Mckeon 2018 - mouth Andras, 07/07/ twice a M.D. 2017 day for 10 days Doxycycline 07/08/ Hx Tablets 100mg 6tabs 1 tab by J01.90 Ligia Mckeon 2016 - mouth Andras, 09/29/ twice a M.D. 2017 day for 3 more days Dramamine 05/28/ Hx Tablets 50mg as needed Delvis 2015 - Andras, 07/07/ M.D. 2015 Meclizine HCL 04/30/ Hx Chewtabs 25mg 30unit Take 1 Delvis 2015 - s tablet 3 Andras, 05/28/ times M.D. 2015 daily as needed for dizziness /vertigo Loryna / Hx Tablets 3-0.02mg 1 by Unknown 0000 - mouth day 2015 Gabapentin / Hx Capsules 100mg 1 by Unknown 0000 - mouth 05/28/ three 2016 times a day Buspirone HCL / Hx Tablets 10mg take 1 Unknown 0000 - tablet by 07/07/ mouth 2015 three times a day Sertraline HCL / Hx Tablets 50mg take 1 Unknown 0000 - tablet 12/10/ 2016 morning for 1 week then 2 tablets every morning Propranolol / Hx Tablets 10mg 1 by Unknown HCL 0000 mouth as directed Vitamin D3 / Hx Capsules 5000Unit 1 a day Unknown Maximum 0000 - Strength 2017 Ashwagandha / Hx Capsules 500mg 1 daily Unknown 0000 - 2017 Licorice Root / Hx Capsule 1 by Unknown 0000 - mouth every day 2018 prn Vital Signs Date Vital Result Comment 07/07/2018 BP Systolic 104 mmHg BP Diastolic 62 mmHg BP Systolic Sitting Left Arm 100 mmHg BP Diastolic Sitting Left Arm 62 mmHg Body Temperature 97.0 F Heart Rate 55 /min Height 63 inches 5'3" Weight 116.00 lb BMI (Body Mass Index) 20.5 kg/m2 BSA (Body Surface Area) 1.53 m2 [place] body weight in kilograms 52 O2 % BldC Oximetry 100 % 05/14/2018 BP Systolic Sitting Right Arm 102 mmHg BP Diastolic Sitting Right Arm 63 mmHg Body Temperature 98.0 F Heart Rate 63 /min Respiratory Rate 16 /min Height 63 inches 5'3" Weight 113.00 lb BMI (Body Mass Index) 20.0 kg/m2 BSA (Body Surface Area) 1.52 m2 [place] body weight in kilograms 52 O2 % BldC Oximetry 100 % 03/17/2018 BP Systolic 104 mmHg BP Diastolic 71 mmHg Body Temperature 97.8 F Heart Rate 65 /min Respiratory Rate 16 /min Height 63 inches 5'3" Weight 113.00 lb BMI (Body Mass Index) 20.0 kg/m2 BSA (Body Surface Area) 1.52 m2 [place] body weight in kilograms 52 O2 % BldC Oximetry 100 % 09/29/2017 BP Systolic 114 mmHg BP Diastolic 61 mmHg Body Temperature 97.3 F Heart Rate 53 /min Respiratory Rate 12 /min Height 63 inches 5'3" Weight 113.00 lb BMI (Body Mass Index) 20.0 kg/m2 BSA (Body Surface Area) 1.52 m2 [place] body weight in kilograms 52 O2 % BldC Oximetry 100 % 07/08/2017 BP Systolic 105 mmHg BP Diastolic 64 mmHg Heart Rate 59 /min Respiratory Rate 12 /min Height 63 inches 5'3" Weight 117.00 lb BMI (Body Mass Index) 20.7 kg/m2 BSA (Body Surface Area) 1.54 m2 [place] body weight in kilograms 52 O2 % BldC Oximetry 100 % 06/29/2017 BP Systolic Sitting Right Arm 105 mmHg BP Diastolic Sitting Right Arm 63 mmHg Heart Rate 66 /min Respiratory Rate 12 /min Height 63 inches 5'3" Weight 117.00 lb per pt. Refused wt BMI (Body Mass Index) 20.7 kg/m2 BSA (Body Surface Area) 1.54 m2 [place] body weight in kilograms 52 02/13/2017 BP Systolic 107 mmHg BP Diastolic 61 mmHg Body Temperature 97.4 F Heart Rate 62 /min Respiratory Rate 12 /min Height 63 inches 5'3" Weight 115.00 lb stated BMI (Body Mass Index) 20.4 kg/m2 BSA (Body Surface Area) 1.53 m2 [place] body weight in kilograms 52 O2 % BldC Oximetry 100 % 02/05/2017 BP Systolic 101 mmHg BP Diastolic 67 mmHg Heart Rate 66 /min Respiratory Rate 12 /min Height 63 inches 5'3" Weight 116.00 lb Stated BMI (Body Mass Index) 20.5 kg/m2 BSA (Body Surface Area) 1.53 m2 [place] body weight in kilograms 52 O2 % BldC Oximetry 98 % 12/10/2016 BP Systolic 106 mmHg BP Diastolic 66 mmHg Heart Rate 74 /min Respiratory Rate 12 /min Height 63 inches 5'3" Weight 120.00 lb stated BMI (Body Mass Index) 21.3 kg/m2 BSA (Body Surface Area) 1.56 m2 [place] body weight in kilograms 52 O2 % BldC Oximetry 99 % 07/30/2016 BP Systolic 150 mmHg BP Diastolic 82 mmHg Heart Rate 93 /min Respiratory Rate 20 /min Height 63 inches 5'3" O2 % BldC Oximetry 98 % 07/07/2016 BP Systolic 108 mmHg BP Diastolic 63 mmHg Heart Rate 60 /min Respiratory Rate 16 /min Height 63 inches 5'3" Weight 120.00 lb stated BMI (Body Mass Index) 21.3 kg/m2 BSA (Body Surface Area) 1.56 m2 O2 % BldC Oximetry 99 % 05/28/2016 BP Systolic 117 mmHg BP Diastolic 74 mmHg Body Temperature 96.7 F Heart Rate 60 /min Respiratory Rate 16 /min Height 63 inches 5'3" Weight 116.00 lb stated BMI (Body Mass Index) 20.5 kg/m2 BSA (Body Surface Area) 1.53 m2 O2 % BldC Oximetry 100 % 04/30/2016 BP Systolic Sitting Left Arm 108 mmHg BP Diastolic Sitting Left Arm 62 mmHg Heart Rate 68 /min Height 63 inches 5'3" [place] body weight in kilograms 52 O2 % BldC Oximetry 98 % Results Test Date Test Result H/L Range Note Laboratory test finding 05/07/2018 Monospot Negative Negative 1, 2 Laboratory test finding 05/07/2018 Rapid Strep Molecular Negative Negative 3 CBS W/Automated Diff 03/17/2018 White Blood Count 4.7 K/uL 3.1-10.7 4 Red Blood Count 3.97 M/uL 3.90-5.40 4 Hemoglobin 13.3 gm/dL 11.6-15.8 4 Hematocrit 38.9 % 36.0-46.1 4 Mean Cell Volume 98.0 fl 80.9-99.0 4 Mean Corpuscular HGB 33.5 pg High 25.9-32.7 4 Mean Corpuscular HGB Conc 34.2 g/dL 30.8-34.3 4 Platelet Count 282 K/uL 155-360 4 Red Cell Distri Width SD 41.7 fl 3-47 4 Red Cell Distri Width %CV 11.9 % 11.7-14.4 4 Mean Platelet Volume 9.9 fL 8.9-12.4 4 Neut% 49.6 % 40.4-72.8 4 Lymph % 35.7 % 20.0-42.0 4 [place] % 9.9 % 4.3-13.2 4 Eo% 4.2 % 0.0-6.6 4 Bas% 0.6 % 0.0-1.1 4 Neut# 2.34 K/uL 1.8-7.0 4 Lymph # 1.69 K/uL 1.0-4.0 4 [place] # 0.47 K/uL 0.3-0.9 4 Eos # 0.20 K/uL 0.0-0.5 4 Baso # 0.03 K/uL 0.0-0.1 4 Laboratory test finding 03/17/2018 Vitamin D,25-Hydroxy 57.7 ng/mL 30.0- 100.0 4, 5 Comprehensive Metabolic 03/17/2018 Glucose 75 mg/dL 74-106 4 Panel BUN 13 mg/dL 7-18 4 Creatinine 0.8 mg/dL 0.6-1.3 4 Glom Filtration Rate, Estimate >60 mL/min >60 4 If >60 mL/min >60 4, 6 BUN/Creat 16.2 ratio 4 Sodium 142 mmol/L 136-145 4 Potassium 4.5 mmol/L 3.5-5.1 4 Chloride 108 mmol/L High 98-107 4 Carbon Dioxide 27 mmol/L 21-32 4 Anion Gap 7 mEq/L Low 8-16 4 Calcium 8.7 mg/dL 8.5-10.1 4 Total Protein 6.8 g/dL 6.4-8.2 4 Albumin 3.6 g/dL 3.4-5.0 4 Globulin 3.2 g/dL 1.9-4.3 4 Alb/Glob 1.1 ratio 4 Bilirubin,Total 0.2 mg/dL 0.2-1.0 4 Sgot/Ast 14 U/L Low 15-37 4, 7 SGPT/Alt 19 U/L 12-78 4 Alkaline Phosphatase 44 U/L Low 45-117 4 Iron-Tibc-%Sat 03/17/2018 Serum Iron 64 g/dL 50-170 4 Total Iron Binding Capacity 362 g/dL 250-450 4 Transferrin %Saturation 18 % 12-57 4 Laboratory test finding 03/17/2018 Free T4 0.70 ng/dL Low 0.76-1.46 4 Thyroid Stim Hormone 1.27 uIU/mL 0.30-4.20 4 Lyme Igg & Igm By Western Blot 03/17/2018 Lyme AB Igg By Western Blot . 4 P93 AB Absent . 4 P66 AB Absent . 4 P58 AB Absent . 4 P45 AB Absent . 4 P41 AB Absent . 4 P39 AB Present . 4 P30 AB Absent . 4 P28 AB Absent . 4 P23 AB Absent . 4 P18 AB Absent . 4 Lyme Igg WB Interpretation Negative . 4, 8 Lyme AB Igm By Western Blot . 4 P41 AB Absent . 4 P39 AB Absent . 4 P23 AB Absent . 4 Lyme Igm WB Interpretation Negative . 4, 9 Vitamin B12 And Folate 03/17/2018 Vitamin B12 1792 pg/mL High 193-986 4 Folic Acid > 20.0 ng/mL High 3.1-17.5 4 Laboratory test 01/02/2018 [place]/Yeast: SEE RESULT 10, 11 finding Vaginal Dna BELOW GC/Chlamydia 01/02/2018 Chlamydia trachomatis Rna Negative Negative 10 Amplified Rna Neisseria gonorrhoeae (GC) Rna Negative Negative 10 Laboratory test finding 01/02/2018 Poc , Urine Negative Negative 12 Poc Urinalysis 01/02/2018 Poc Glucose, Urine Negative Negative Poc Bilirubin, Urine Negative Negative Poc Ketone, Urine Negative Negative Poc Specific [place], Urine 1.015 1.010-1.030 Poc Blood, Urine Negative Negative Poc pH, Urine 7.5 5-9 Poc Protein, Urine Negative Negative Poc Urobilinogen, Urine 0.2 Negative Poc Nitrite, Urine Negative Negative Poc Leukocytes, Urine 1+ Negative Poc Color, Urine Yellow Poc Clarity, Urine Clear 13 Urine Culture And 01/02/2018 Urine Culture SEE RESULT 14, 15 Sensitivities BELOW Lymphocytes/leuk NFr 11/27/2017 Lymphocytes/leuk NFr 58.5 High 20.0-4 Bld Auto Bld Auto 2.0 Monocytes/leuk NFr Bld 11/27/2017 Monocytes/leuk NFr Bld 7.2 4.3-13 Auto Auto .2 Neutrophils # Bld Auto 11/27/2017 Neutrophils # Bld Auto 1.64 Low 1.8-7. 0 Neutrophils/leuk NFr 11/27/2017 Neutrophils/leuk NFr 26.8 Low 40.4-7 Bld Auto Bld Auto 2.8 Potassium SerPl-sCnc 11/27/2017 Potassium SerPl-sCnc 3.5 3.5-5. 1 RDW RBC Auto 11/27/2017 RDW RBC Auto 43.3 3-47 RDW RBC Auto-Rto 11/27/2017 RDW RBC Auto-Rto 12.2 11.7-1 4.4 Serum carbon dioxide 11/27/2017 Serum carbon dioxide 29 21-32 measurement measurement Serum or plasma 11/27/2017 Serum or plasma 3.5 3.4-5. albumin measurement albumin measurement 0 (mass/volume) (mass/volume) Serum or plasma 11/27/2017 Serum or plasma 43 Low 45-117 alkaline phosphatase alkaline phosphatase measurement ( measurement (enzymatic activity/volume) Serum or plasma 11/27/2017 Serum or plasma 18 15-37 aspartate aspartate aminotransferase aminotransferase measure measurement (enzymatic activity/volume) Serum or plasma 11/27/2017 Serum or plasma 8.5 8.5-10 calcium measurement calcium measurement .1 (mass/volume) (mass/volume) Serum or plasma 11/27/2017 Serum or plasma 0.7 0.6-1. creatinine measurement creatinine measurement 3 (mass/volum (mass/volume) Serum or plasma 11/27/2017 Serum or plasma 96 74-106 glucose measurement glucose measurement (mass/volume) (mass/volume) Serum or plasma 11/27/2017 Serum or plasma 7.1 6.4-8. protein measurement protein measurement 2 (mass/volume) (mass/volume) Serum or plasma total 11/27/2017 Serum or plasma total 0.2 0.2-1. bilirubin measurement bilirubin measurement 0 (mass/ (mass/volume) Serum or plasma urea 11/27/2017 Serum or plasma urea 10 7-18 nitrogen measurement nitrogen measurement (mass/vo (mass/volume) Serum sodium 11/27/2017 Serum sodium 142 136-14 measurement measurement 5 Comprehensive 11/27/2017 Glucose 96 mg/dL 74-106 16 Metabolic Panel BUN 10 mg/dL 7-18 16 Creatinine 0.7 mg/dL 0.6-1.3 16 Glom Filtration Rate, Estimate >60 mL/min >60 16 If >60 mL/min >60 16, 17 BUN/Creat 14.2 ratio 16 Sodium 142 mmol/L 136-145 16 Potassium 3.5 mmol/L 3.5-5.1 16 Chloride 108 mmol/L High 98-107 16 Carbon Dioxide 29 mmol/L 21-32 16 Anion Gap 5 mEq/L Low 8-16 16 Calcium 8.5 mg/dL 8.5-10.1 16 Total Protein 7.1 g/dL 6.4-8.2 16 Albumin 3.5 g/dL 3.4-5.0 16 Globulin 3.6 g/dL 1.9-4.3 16 Alb/Glob 1.0 ratio 16 Bilirubin,Total 0.2 mg/dL 0.2-1.0 16 Sgot/Ast 18 U/L 15-37 16 SGPT/Alt 28 U/L 12-78 16 Alkaline Phosphatase 43 U/L Low 45-117 16 CBS W/Automated Diff 11/27/2017 White Blood Count 6.1 K/uL 3.1-10.7 16 Red Blood Count 3.87 M/uL Low 3.90-5.40 16 Hemoglobin 13.2 gm/dL 11.6-15.8 16 Hematocrit 38.4 % 36.0-46.1 16 Mean Cell Volume 99.2 fl High 80.9-99.0 16 Mean Corpuscular HGB 34.1 pg High 25.9-32.7 16 Mean Corpuscular HGB Conc 34.4 g/dL High 30.8-34.3 16 Platelet Count 266 K/uL 155-360 16 Red Cell Distri Width SD 43.3 fl 3-47 16 Red Cell Distri Width %CV 12.2 % 11.7-14.4 16 Mean Platelet Volume 9.4 fL 8.9-12.4 16 Neut% 26.8 % Low 40.4-72.8 16 Lymph % 58.5 % High 20.0-42.0 16 [place] % 7.2 % 4.3-13.2 16 Eo% 6.7 % High 0.0-6.6 16 Bas% 0.8 % 0.0-1.1 16 Neut# 1.64 K/uL Low 1.8-7.0 16 Lymph # 3.58 K/uL 1.0-4.0 16 [place] # 0.44 K/uL 0.3-0.9 16 Eos # 0.41 K/uL 0.0-0.5 16 Baso # 0.05 K/uL 0.0-0.1 16 Laboratory test finding 11/27/2017 CK 232 U/L High 26-192 16 Troponin-I < 0.015 ng/mL 16, 18 Alt SerPl-cCnc 11/27/2017 Alt SerPl-cCnc 28 12-78 Albumin/Glob SerPl 11/27/2017 Albumin/Glob SerPl 1.0 Anion Gap SerPl-sCnc 11/27/2017 Anion Gap SerPl-sCnc 5 Low 8-16 Automated blood 11/27/2017 Automated blood 0.05 0.0-0.1 basophil count basophil count (count/volume) (count/volume) Automated blood 11/27/2017 Automated blood 0.41 0.0-0.5 eosinophil count eosinophil count Automated blood 11/27/2017 Automated blood 38.4 36.0-46.1 hematocrit (volume hematocrit (volume fraction) fraction) Automated blood 11/27/2017 Automated blood 3.58 1.0-4.0 lymphocyte count lymphocyte count (number/volume) (number/volume) Automated blood 11/27/2017 Automated blood 266 155-360 platelet count platelet count Automated blood 11/27/2017 Automated blood 9.4 8.9-12.4 platelet mean volume platelet mean volume measurement measurement Automated erythrocyte 11/27/2017 Automated erythrocyte 34.1 High 25.9- 32.7 mean corpuscular mean corpuscular hemoglobin hemoglobin (mass per erythrocyte) Globulin Ser Calc-mCnc 11/27/2017 Globulin Ser Calc-mCnc 3.6 1.9-4.3 Eosinophil/leuk NFr Bld 11/27/2017 Eosinophil/leuk NFr Bld 6.7 High 0.0- 6.6 Auto Auto Chloride SerPl-sCnc 11/27/2017 Chloride SerPl-sCnc 108 High 98-107 Blood monocytes 11/27/2017 Blood monocytes 0.44 0.3-0.9 automated count automated count (number/volume) (number/volume) Blood leukocytes 11/27/2017 Blood leukocytes 6.1 3.1-10.7 automated count automated count (number/volume) (number/volume) Blood hemoglobin 11/27/2017 Blood hemoglobin 13.2 11.6-15.8 measurement measurement (mass/volume) (mass/volume) Blood erythrocytes 11/27/2017 Blood erythrocytes 3.87 Low 3.90-5.40 automated count automated count (number/volume) (number/volume) Basophils/leuk NFr Bld 11/27/2017 Basophils/leuk NFr Bld 0.8 0.0-1.1 Auto Auto BUN/Creat SerPl 11/27/2017 BUN/Creat SerPl 14.2 Automated erythrocyte 11/27/2017 Automated erythrocyte 99.2 High 80.9- 99.0 mean corpuscular volume mean corpuscular volume Automated erythrocyte 11/27/2017 Automated erythrocyte 34.4 High 30.8- 34.3 mean corpuscular mean corpuscular hemoglobin hemoglobin concentration measurement (mass/volume) Laboratory test finding 09/14/2017 Rapid Strep Molecular Negative Negative 19 Rapid Influenza A & B 09/14/2017 Influenza A Molecular POSITIVE Negative 20 Molecular Influenza B Molecular NEGATIVE Negative Laboratory test finding 08/03/2017 Poc , Urine Negative Negative 21 Poc Urinalysis 08/03/2017 Poc Glucose, Urine Negative Negative Poc Bilirubin, Urine Negative Negative Poc Ketone, Urine Negative Negative Poc Specific [place], Urine 1.015 1.010-1.030 Poc Blood, Urine Negative Negative Poc pH, Urine 6.0 5-9 Poc Protein, Urine Negative Negative Poc Urobilinogen, Urine 0.2 Negative Poc Nitrite, Urine Negative Negative Poc Leukocytes, Urine Negative Negative Poc Color, Urine Other Poc Clarity, Urine Slightly Cloudy 22 GC/Chlamydia Amplified Rna 08/03/2017 Chlamydia trachomatis Rna Negative Negative Neisseria gonorrhoeae (GC) Rna Negative Negative Laboratory test 07/04/2017 Urine HCG NEGATIVE Negative 23, 24 finding (Qualitative) Neutrophils/leuk NFr 06/29/2017 Neutrophils/leuk NFr 50.0 40.4-72.8 Bld Auto Bld Auto Potassium SerPl-sCnc 06/29/2017 Potassium SerPl-sCnc 4.0 3.5-5.1 RDW RBC Auto 06/29/2017 RDW RBC Auto 40.9 3-47 RDW RBC Auto-Rto 06/29/2017 RDW RBC Auto-Rto 11.8 11.7-14.4 Serum carbon dioxide 06/29/2017 Serum carbon dioxide 27 21-32 measurement measurement Serum or plasma 06/29/2017 Serum or plasma 3.5 3.4-5.0 albumin measurement albumin measurement (mass/volume) (mass/volume) Serum or plasma 06/29/2017 Serum or plasma 47 45-117 alkaline phosphatase alkaline phosphatase measurement ( measurement (enzymatic activity/volume) Serum or plasma 06/29/2017 Serum or plasma 14 Low 15-37 aspartate aspartate aminotransferase aminotransferase measure measurement (enzymatic activity/volume) Serum or plasma 06/29/2017 Serum or plasma 9.0 8.5-10.1 calcium measurement calcium measurement (mass/volume) (mass/volume) Serum or plasma 06/29/2017 Serum or plasma 0.7 0.6-1.3 creatinine measurement creatinine (mass/volum measurement (mass/volume) Serum or plasma 06/29/2017 Serum or plasma 73 Low 74-106 glucose measurement glucose measurement (mass/volume) (mass/volume) Serum or plasma 06/29/2017 Serum or plasma 6.6 6.4-8.2 protein measurement protein measurement (mass/volume) (mass/volume) Serum or plasma total 06/29/2017 Serum or plasma total 0.2 0.2-1.0 bilirubin measurement bilirubin measurement (mass/ (mass/volume) Serum or plasma urea 06/29/2017 Serum or plasma urea 12 7-18 nitrogen measurement nitrogen measurement (mass/vo (mass/volume) Serum sodium 06/29/2017 Serum sodium 140 136-145 measurement measurement WBC # Bld Auto 06/29/2017 WBC # Bld Auto 6.2 3.1-10.7 Alt SerPl-cCnc 06/29/2017 Alt SerPl-cCnc 21 12-78 CBS W/Automated Diff 06/29/2017 White Blood Count 6.2 K/uL 3.1-10.7 25 Red Blood Count 3.94 M/uL 3.90-5.40 25 Hemoglobin 13.2 gm/dL 11.6-15.8 25 Hematocrit 38.4 % 36.0-46.1 25 Mean Cell Volume 97.5 fl 80.9-99.0 25 Mean Corpuscular HGB 33.5 pg High 25.9-32.7 25 Mean Corpuscular HGB Conc 34.4 g/dL High 30.8-34.3 25 Platelet Count 277 K/uL 155-360 25 Red Cell Distri Width SD 40.9 fl 3-47 25 Red Cell Distri Width %CV 11.8 % 11.7-14.4 25 Mean Platelet Volume 10.4 fL 8.9-12.4 25 Neut% 50.0 % 40.4-72.8 25 Lymph % 38.9 % 20.0-42.0 25 [place] % 7.3 % 4.3-13.2 25 Eo% 2.8 % 0.0-6.6 25 Bas% 1.0 % 0.0-1.1 25 Neut# 3.09 K/uL 1.8-7.0 25 Lymph # 2.40 K/uL 1.0-4.0 25 [place] # 0.45 K/uL 0.3-0.9 25 Eos # 0.17 K/uL 0.0-0.5 25 Baso # 0.06 K/uL 0.0-0.1 25 Laboratory test finding 06/29/2017 Thyroid Stim Hormone 2.20 uIU/mL 0.30- 4.20 25 Free T4 0.78 ng/dL 0.76-1.46 25 Comprehensive Metabolic Panel 06/29/2017 Glucose 73 mg/dL Low 74-106 25 BUN 12 mg/dL 7-18 25 Creatinine 0.7 mg/dL 0.6-1.3 25 Glom Filtration Rate, Estimate >60 mL/min >60 25 If >60 mL/min >60 25, 26 BUN/Creat 17.1 ratio 25 Sodium 140 mmol/L 136-145 25 Potassium 4.0 mmol/L 3.5-5.1 25 Chloride 105 mmol/L 98-107 25 Carbon Dioxide 27 mmol/L 21-32 25 Anion Gap 8 mEq/L 8-16 25 Calcium 9.0 mg/dL 8.5-10.1 25 Total Protein 6.6 g/dL 6.4-8.2 25 Albumin 3.5 g/dL 3.4-5.0 25 Globulin 3.1 g/dL 1.9-4.3 25 Alb/Glob 1.1 ratio 25 Bilirubin,Total 0.2 mg/dL 0.2-1.0 25 Sgot/Ast 14 U/L Low 15-37 25, 27 SGPT/Alt 21 U/L 12-78 25 Alkaline Phosphatase 47 U/L 45-117 25 Albumin/Glob SerPl 06/29/2017 Albumin/Glob SerPl 1.1 Anion Gap SerPl-sCnc 06/29/2017 Anion Gap SerPl-sCnc 8 8-16 Automated blood basophil 06/29/2017 Automated blood basophil 0.06 0.0- 0.1 count (count/volume) count (count/volume) Automated blood 06/29/2017 Automated blood 0.17 0.0-0.5 eosinophil count eosinophil count Automated blood 06/29/2017 Automated blood 38.4 36.0-46.1 hematocrit (volume hematocrit (volume fraction) fraction) Automated blood 06/29/2017 Automated blood 2.40 1.0-4.0 lymphocyte count lymphocyte count (number/volume) (number/volume) Automated blood platelet 06/29/2017 Automated blood platelet 277 155-360 count count Automated blood platelet 06/29/2017 Automated blood platelet 10.4 8.9- 12.4 mean volume measurement mean volume measurement Automated erythrocyte 06/29/2017 Automated erythrocyte 33.5 High 25.9- 32.7 mean corpuscular mean corpuscular hemoglobin hemoglobin (mass per erythrocyte) Automated erythrocyte 06/29/2017 Automated erythrocyte 34.4 High 30.8- 34.3 mean corpuscular mean corpuscular hemoglobin hemoglobin concentration measurement (mass/volume) Automated erythrocyte 06/29/2017 Automated erythrocyte 97.5 80.9-99.0 mean corpuscular volume mean corpuscular volume Neutrophils # Bld Auto 06/29/2017 Neutrophils # Bld Auto 3.09 1.8-7.0 Monocytes/leuk NFr Bld 06/29/2017 Monocytes/leuk NFr Bld 7.3 4.3-13.2 Auto Auto Lymphocytes/leuk NFr Bld 06/29/2017 Lymphocytes/leuk NFr Bld 38.9 20.0- 42.0 Auto Auto Globulin Ser Calc-mCnc 06/29/2017 Globulin Ser Calc-mCnc 3.1 1.9-4.3 Eosinophil/leuk NFr Bld 06/29/2017 Eosinophil/leuk NFr Bld 2.8 0.0-6.6 Auto Auto BUN/Creat SerPl 06/29/2017 BUN/Creat SerPl 17.1 Basophils/leuk NFr Bld 06/29/2017 Basophils/leuk NFr Bld 1.0 0.0-1.1 Auto Auto Blood erythrocytes 06/29/2017 Blood erythrocytes 3.94 3.90-5.40 automated count automated count (number/volume) (number/volume) Blood hemoglobin 06/29/2017 Blood hemoglobin 13.2 11.6-15.8 measurement measurement (mass/volume) (mass/volume) Blood monocytes 06/29/2017 Blood monocytes 0.45 0.3-0.9 automated count automated count (number/volume) (number/volume) Chloride SerPl-sCnc 06/29/2017 [facility] 98-107 Ua RFX Micro & Culture 02/13/2017 Urine Color YELLOW Yellow 28 II Urine Clarity CLEAR Clear 28 Urine Glucose - Dipstick NEGATIVE mg/dL Negative 28 Urine Bilirubin - Dipstick NEGATIVE Negative 28 Urine Ketone NEGATIVE mg/dL Negative 28 Urine Specific [place] 1.020 1.010-1.030 28 Urine Blood NEGATIVE Negative 28 Urine PH 6.0 Low 6.5-7.5 28 Urine Protein - Dipstick NEGATIVE mg/dL Negative 28 Urine Urobilinogen - Dipstick 0.2 E.U./dL 0.2-1.0 28 Urine Nitrite - Dipstick NEGATIVE Negative 28 Urine Leuk Esterase NEGATIVE Negative 28 Source: URINE, CLEAN CAT <SEE NOTE> 28, 29 Laboratory test 02/13/2017 HCG,Serum (Qualitative) NEGATIVE (Negative) 28, 30 finding BUN 11 mg/dL 7-18 28 Creatinine 0.7 mg/dL 0.6-1.3 28 Laboratory test finding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
[2018-07-26 10:52] VITALS: BP 120/77
--- NOTE | 2018-07-26 11:25 | UC ---
UC General HPI - HPI Summary HPI Summary: swollen- sore throat, swollen glands, mm aches and fatigue upon waking this am. - History of Current Complaint Chief Complaint: UCGeneralIllness Stated Complaint: SORE THROAT Time Seen by Provider: 07/26/18 10:52 Hx Obtained From: Patient Hx Last Menstrual Period: "two weeks ago" Onset/Duration: Gradual Onset Timing: Constant Pain Intensity: 5 Associated Signs & Symptoms: Negative: Fever - Allergy/Home Medications Allergies/Adverse Reactions: Allergies Allergy/AdvReac Type Severity Reaction Status Date / Time Penicillins Allergy Unknown Verified 07/26/18 10:47 Reaction Details Home Medications: Home Medications Fluticasone NASAL SPRAY 50MCG* [Flonase NASAL SPRAY 50MCG*] 2 spray BOTH NARES DAILY 07/26/18 [History Confirmed 07/26/18] predniSONE TAB* [Deltasone TAB*] 30 mg PO BID 07/26/18 [History Confirmed ] PMH/Surg Hx/FS Hx/Imm Hx - Additional Past Medical History Additional PMH: fatigue(negative workup by pcp) Respiratory History: Asthma - Surgical History Surgical History: None - Family History Known Family History: Positive: Diabetes, Other - bipolar disorder. PTSD grandfather, [place], anxiety, depression - Social History Occupation: Employed Full-time Alcohol Use: None Substance Use Type: None Smoking Status (MU): Never Smoked Tobacco Have You Smoked in the Last Year: No - Immunization History Most Recent Influenza Vaccination: Never Most Recent Tetanus Shot: December 2015 Most Recent Pneumonia Vaccination: Never Vaccination Up to Date: Yes Review of Systems All Other Systems Reviewed And Are Negative: Yes Constitutional: Positive: Fatigue Skin: Positive: Negative Eyes: Positive: Negative ENT: Positive: Sore Throat Respiratory: Positive: Negative Cardiovascular: Positive: Negative Gastrointestinal: Positive: Negative Genitourinary: Positive: Negative Motor: Positive: Negative Neurovascular: Positive: Negative Musculoskeletal: Positive: Myalgia Neurological: Positive: Negative Psychological: Positive: Negative Physical Exam Triage Information Reviewed: Yes Appearance: Well-Appearing Vital Signs: Initial Vital Signs Temp 98.2 F 07/26/18 10:45 Pulse 56 07/26/18 10:45 Resp 16 07/26/18 10:45 BP 120/77 07/26/18 10:45 Pulse Ox 100 07/26/18 10:45 Vital Signs Reviewed: Yes Eyes: Positive: Conjunctiva Clear ENT: Positive: Pharyngeal erythema - with vesicle on either side of uvula, TMs normal, Uvula midline. Negative: Nasal congestion, Nasal drainage, Trismus, Muffled voice, Hoarse voice Neck: Positive: Supple, Tenderness @ - peritonsilar nodes but no swelling. Respiratory: Positive: Lungs clear, Normal breath sounds, No respiratory distress Cardiovascular: Positive: RRR, No Murmur Abdomen Description: Positive: Nontender, No Organomegaly, Soft Bowel Sounds: Positive: Present Musculoskeletal: Positive: ROM Intact Neurological: Positive: Alert Psychological: Positive: Age Appropriate Behavior Skin Exam: Normal Diagnostics - Laboratory Diagnostic Studies Completed/Ordered: rapid strep=neg. Course/Dx - Course Course Of Treatment: fatigue is chronic and rapid strep=neg thus tx supportive. - Differential Dx - Multi-Symptom Differential Diagnoses: Other - strep throat, viral pharyngitis - Diagnoses Provider Diagnosis: Pharyngitis Discharge - Sign-Out/Discharge Documenting (check all that apply): Patient Departure All imaging exams completed and their final reports reviewed: No Studies - Discharge Plan Condition: Stable Disposition: HOME Patient Education Materials: Pharyngitis (ED) Referrals: Robbie Edmondson MD [Primary Care Provider] - 5 Days - Billing Disposition and Condition Condition: STABLE Disposition: Home - Attestation Statements Provider Attestation: I was available for consult. This patient was seen by the HERNANDO. The patient was not presented to, seen by, or examined by me. -Amanda
== END 2018-07-26 11:32 | disposition home or self-care (01) ==
LOC: UCCORT 09:24
DX: Z88.0 Allergy status to penicillin (principal); J02.9 Acute pharyngitis, unspecified
CPT/HCPCS: 87651; 99211; G0463

== ENCOUNTER 2018-10-08 10:46 | Emergency (ER) | payer OTHER ==
--- OUTSIDE RECORDS SUMMARY | 2018-10-08 10:59 | XMS REPORT | Continuity of Care Document ---
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 Robbie Edmondson MD Primary Care Physician Unavailable Payers Date Identification Numbers Payment Provider Subscriber Policy Number: [id number] [facility] Amy Ramon PayID: [id number] [address] [place] [address] Advance Directives Description No Information Available Problems Date Description Provider Status Onset: 09/08/2017 Allergic rhinitis due to pollen Jude Sanders MD Active Onset: 09/08/2017 Allergic rhinitis Jude Sanders MD Active Onset: 03/30/2018 Dyspnea Lisa SChristelle Whiteacher, RPA-C Active Onset: 03/30/2018 Exacerbation of intermittent Lisa SChristelle Fenstermacher, RPA-C Active asthma Onset: 05/27/2018 Uncomplicated moderate Lisa SChristelle Whiteacher, RPA-C Active persistent asthma Onset: 07/29/2018 Acute sinusitis EBONY Weaver Active Family History Description No Information Available Social History Type Date Description Comments Sex Unknown Smoke-Free Home is smoke-free Pets 1 cat Tobacco Use Start: Unknown Patient has never smoked Tobacco Use Start: Unknown No Second Hand Smoke Exposure Smoking Status Reviewed: 07/29/18 No Second Hand Smoke Exposure Allergies, Adverse Reactions, Alerts Date Description Reaction Status Severity Comments 09/08/2017 Penicillin Active Medications Medication Date Status Form Strength Qnty SIG Indications Ordering Provider Xopenex HFA 07/29 Active Aerosol 45mcg/Act 15gm 2 puffs J45.21 every 4 Julissa Sanders MD as needed Azelastine HCL 05/27 Active Solution 137mcg/Sp 30ml instill 2 J30.1 (Nasal) ray sprays Julissa Sanders MD into each nostril twice a day. Flovent HFA 05/27 Active Aerosol 220mcg/Ac 12gm Inhale 2 J45.40 t puffs by Julissa Sanders MD inhalatio n route bid. Use with spacer. Rinse mouth after every use. Aerochamber Plus 04/07 Active Misc 1unit use s aerochamb Julissa Sanders MD er as directed with your inhalers. Xanax XR Active Tablets ER 2mg Unknown /0000 24HR Xanax Active Tablets 1mg Unknown /0000 Fluticasone Active Suspension 50mcg/Act 16gm spray 2 opher sprays in Julissa Sanders MD each nostril once daily Escitalopram Active Tablets 20mg take 1 Unknown Oxalate /0000 tablet by mouth once daily Optichamber Active Misc Use With Unknown Tayla /0000 Inhalers as Directed Drospirenone-Eth Active Tablets 3-0.02mg take 1 Unknown inyl Estradiol /0000 tablet once daily Azithromycin Active Tablets 250mg take 2 Unknown /0000 tablets by mouth on day 1 in one dose then 1 tablet on days 2 through 5 Constulose Active Solution 10GM/15ML Delvis, /0000 MD Robbie Prednisone Active Tablets 20mg take 1 Unknown /0000 tablet by mouth twice a day for 5 days with food Prednisone Active Tablets 5mg take 6 Unknown /0000 tablets twice a day for 3 days Prednisone Active Tablets 10mg take 3 Unknown /0000 tablets by mouth twice a day for 3 days -Take With Food Montelukast Active Tablets 10mg Unknown Sodium /0000 Methylprednisolo Active Tablets 4mg Take 5 Unknown ne /0000 Tabs On Day 1; 4 On Day 2; 3 On Day 3; 2 On Day 4; 1 On Day 5 Doxycycline Active Tablets 100mg take 1 Unknown Hyclate /0000 tablet by mouth twice a day for 10 days Methylprednisolo Active TBPK 4mg Take 6 Unknown ne /0000 Tablets On Day 1 as Directed On Package And Decrease By 1 Tab Each Day Fora Total Of 6 Days Proair Active Aerosol 108(90Bas Unknown Respiclick e) mcg/Act Breo Ellipta Active Aerosol 200-25mcg inhale 1 /Inh puff once daily Rinse mouth after use Metronidazole Active Tablets 500mg take 1 tablet twice a day Fluconazole Active Tablets 150mg Unknown Azithromycin 07/29 Hx Tablets 250mg Start J45.21 Tomorrow, Julissa Sanders MD - Take 1 09/23 Tablet /2018 Daily Azithromycin 07/29 Hx Tablets 250mg 6tabs 2 tabs by J45.21 mouth Julissa Sanders MD - today. 1 09/23 tab mouth on days 2, 3, 4 and 5. Prednisone 07/29 Hx Tablets 20mg 10tab Take one J45.21 s tablet by Julissa Sanders MD - mouth 09/23 twice day x5 days. Take with food. Medrol 06/03 Hx Tablets 4mg 15tab take 5 s tablets Julissa Sanders MD - day 1, 07/29 take tabs day 2, take 3 tabs day 3, take 2 tabs day 4. then take 1 tab on day 5. Azithromycin 06/03 Hx Tablets 250mg 6tabs take 2 tabs the Julissa Sanders MD - first day 07/29 then tab x 4 days. Prednisone 05/27 Hx Tablets 10mg 18tab take 3 J30.1 s tablets Julissa Sanders MD - by mouth 07/29 twice day x3 days. take with food. Flovent HFA 04/07 Hx Aerosol 110mcg/Ac 12gm Inhale 2 t puffs Julissa Sanders MD - (220 mcg) 05/27 inhalatio n route 2 times per day. Use with spacer. Rinse mouth after use. Medrol 04/05 Hx TBPK 4mg 21uni take as ts directed Julissa Sanders MD - 05/27 Prednisone 03/30 Hx Tablets 20mg 10tab Take one s tablet by Julissa Sanders MD - mouth 05/27 twice a day x5 days. Take with food. Breo Ellipta 03/30 Hx Aerosol 200-25mcg 1unit inhale /2017 /Inh s one puff Julissa Sanders MD - once a 04/07 day. rinse mouth after use. Proair 03/30 Hx Aerosol 108(90Bas 1unit inhale 2 opher Respicl e) s puffs Q4 Julissa Sanders MD - mcg/Act hours as 05/27 needed Singulair 09/08 Hx Tablets 10mg 30tab 10mg by J30.1 s mouth Julissa Sanders MD - daily at 05/27 bedtime Cetirizine HCL 09/08 Hx Tablets 10mg 30tab take one J30.1 s tablet po Julissa Sanders MD - daily prn 05/27 Escitalopram Hx Tablets 5mg 1/2 tab Unknown Oxalate /0000 qd - 05/27 Doxycycline Hx Tablets 100mg Ligia Edmondson /0000 MD Robbie - 05/27 Breo Ellipta Hx Aerosol 200-25mcg inhale 1 Unknown /0000 /Inh puff once - daily 05/27 Rinse mouth after use Metronidazole 00 Hx Tablets 500mg Unknown /0000 - 05/27 Fluconazole Hx Tablets 150mg Unknown /0000 - 05/27 Azithromycin Hx Tablets 250mg Start Unknown /0000 Tomorrow, - Take 1 05/27 Daily Minocycline HCL Hx Capsules 100mg Eddy, 0000 Scarlett Griffith M.D. 05/27 Oseltamivir Hx Capsules 75mg Unknown Phosphate /0000 - 05/27 Nitrofurantoin Hx Capsules 100mg Sheri Caballero Macro /0000 Evelin Payan NP - 05/27 Valacyclovir HCL Hx Tablets 1gm take 1 Unknown /0000 tablet - twice a 05/27 day for 10 days Phenazopyridine 00 Hx Tablets 100mg take 1 Unknown HCL /0000 tablet by - mouth 05/27 every hours Cyclobenzaprine 00/00 Hx Tablets 5mg Unknown HCL /0000 - 05/27 Medications Administered in Office Medication Date Status Form Strength Qnty SIG Indications Ordering Provider Allergy 07/13/ Administered Injection Christopher Injection 2 2017 Julissa Sanders MD Or More Allergy 07/01/ Administered Injection Christopher Injection 2 2017 Julissa Sanders MD Or More Allergy 06/22/ Administered Injection Christopher Injection 2 2017 Julissa Sanders MD Or More Allergy 06/15/ Administered Injection Christopher Injection 2 2017 Julissa Sanders MD Or More Allergy 06/10/ Administered Injection Christopher Injection 2 2017 Julissa Sanders MD Or More Allergy 06/03/ Administered Injection Christopher Injection 2 2017 Julissa Sanders MD Or More Immunizations Description No Information Available Vital Signs Date Vital Result Comment 09/23/2018 10:55am BP Systolic 106 mmHg BP Diastolic 68 mmHg Height 62 inches 5'2" Weight 113.00 lb BMI (Body Mass Index) 20.7 kg/m2 Heart Rate 63 /min Respiratory Rate 18 /min Body Temperature 97.2 F O2 % BldC Oximetry 98 % 07/29/2018 10:54am BP Systolic 118 mmHg BP Diastolic 70 mmHg Height 62 inches 5'2" Weight 115.00 lb BMI (Body Mass Index) 21.0 kg/m2 Heart Rate 70 /min Respiratory Rate 20 /min Body Temperature 97.8 F O2 % BldC Oximetry 99 % 05/27/2018 10:17am BP Systolic 104 mmHg BP Diastolic 58 mmHg Height 62 inches 5'2" Weight 115.00 lb BMI (Body Mass Index) 21.0 kg/m2 Heart Rate 69 /min Respiratory Rate 18 /min Body Temperature 97.7 F O2 % BldC Oximetry 100 % 03/30/2018 2:31pm BP Systolic 112 mmHg BP Diastolic 60 mmHg Height 62 inches 5'2" Weight 114.00 lb BMI (Body Mass Index) 20.8 kg/m2 Heart Rate 72 /min Respiratory Rate 16 /min Body Temperature 97.2 F O2 % BldC Oximetry 99 % 09/08/2017 10:51am BP Systolic 125 mmHg BP Diastolic 75 mmHg Height 62 inches 5'2" Weight 116.00 lb BMI (Body Mass Index) 21.2 kg/m2 Heart Rate 66 /min Respiratory Rate 16 /min Body Temperature 98.5 F O2 % BldC Oximetry 98 % Results Description No Information Available Procedures Date Code Description Status 07/29/2018 65275 Nitric Oxide Gas Determination Completed 07/13/2018 05476 Allergy Injection 2 Or More Completed 07/01/2018 63750 Allergy Injection 2 Or More Completed 06/22/2018 88699 Allergy Injection 2 Or More Completed 06/15/2018 13946 Allergy Injection 2 Or More Completed 06/10/2018 40199 Allergy Injection 2 Or More Completed 06/03/2018 69685 Allergy Injection 2 Or More Completed 05/28/2018 88595 Allergy Antigens Single Or Multiple Completed 05/27/2018 52251 Nitric Oxide Gas Determination Completed 05/27/2018 11302 Bronchodilation Responsiveness Spirometry Pre/Post Completed Bronchodil Adm 03/30/2018 71976 Bronchodilation Responsiveness Spirometry Pre/Post Completed Bronchodil Adm 09/08/2017 49614 Allergy Tests Percutaneous W/ Allergenic Extracts Completed Encounters Type Date Location Provider Dx Diagnosis Office Visit 07/29/2018 11:00a EBONY Zazueta J30.1 Allergic rhinitis due to pollen J30.89 Other allergic rhinitis J45.40 Moderate persistent asthma, uncomplicated J01.90 Acute sinusitis, unspecified Office Visit 05/27/2018 10:00a Malvin Stoll J45.40 Moderate persistent Fenstermacher, RPA-C asthma, uncomplicated J30.1 Allergic rhinitis due to pollen J30.89 Other allergic rhinitis Office Visit 03/30/2018 2:30p Malvin Tsai45.21 Mild intermittent Fenstermacher, RPA-C asthma with (acute) exacerbation J30.1 Allergic rhinitis due to pollen J30.89 Other allergic rhinitis R06.02 Shortness of breath Office Visit 09/08/2017 10:30a Eulalio Kidd30.1 Allergic rhinitis MD due to pollen J30.89 Other allergic rhinitis Plan of Treatment 07/29/2018 - EBONY WeaverJ30.1 Allergic rhinitis due to tengytT16.89 Other allergic bodffzobE48.40 Moderate persistent asthma, uncomplicatedComments: Patient's exhaled nitric oxide is normal at 25 ppb today. Patient to take azithromycin as prescribed for 5 days. Patient to take prednisone as prescribed for 5 days. Patient to continue Flovent for prophylaxis of her lungs and Xopenex for breakthrough chest symptoms. Patient to continue Flonase and Azelastine for prophylaxis of her nose. Saline nasal rinse and HEPA air filter may help decrease allergens. Warm salt water gargles may help.Patient to obtain CAT scan of her sinuses for further evaluation.J01.90 Acute sinusitis , unspecified
--- OUTSIDE RECORDS SUMMARY | 2018-10-08 10:59 | XMS REPORT | Continuity of Care Document ---
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 Robbie Edmondson MD Primary Care Physician Unavailable Payers Date Identification Numbers Payment Provider Subscriber Policy Number: [id number] [facility] Amy Ramon PayID: [id number] [address] [place] [address] Advance Directives Description No Information Available Problems Date Description Provider Status Onset: 09/08/2017 Allergic rhinitis due to pollen Jude Sanders MD Active Onset: 09/08/2017 Allergic rhinitis Jude Sanders MD Active Onset: 03/30/2018 Dyspnea Lisa Trotter, RPA-C Active Onset: 03/30/2018 Exacerbation of intermittent Lisa Reynaermacher, RPA-C Active asthma Onset: 05/27/2018 Uncomplicated moderate Lisa SChristelle Whiteacher, RPA-C Active persistent asthma Onset: 07/29/2018 Acute sinusitis EBONY Weaver Active Family History Description No Information Available Social History Type Date Description Comments Sex Unknown Smoke-Free Home is smoke-free Pets 1 cat Tobacco Use Start: Unknown Patient has never smoked Tobacco Use Start: Unknown No Second Hand Smoke Exposure Smoking Status Reviewed: 09/23/18 No Second Hand Smoke Exposure Allergies, Adverse [...] tablet once daily Azithromycin Active Tablets 250mg 6tabs take 2 Christopher /0000 tablets Julissa Sanders MD by mouth on day 1 in one dose then 1 tablet on days 2 through 5 Constulose Active Solution 10GM/15ML Delvis, /0000 MD Robbie Prednisone Active Tablets 20mg take 1 Unknown /0000 tablet by mouth twice a day for 5 days with food Prednisone Active Tablets 5mg take 6 Unknown /0000 tablets twice a day for 3 days Prednisone 00 Active Tablets 10mg take 3 Unknown /0000 [...] Days Proair Active Aerosol 108(90Bas Unknown Respiclick /0000 e) mcg/Act Metronidazole Active Tablets 500mg take 1 Unknown /0000 tablet twice a day Fluconazole Active Tablets 150mg Unknown /0000 Azithromycin 07/29 Hx Tablets 250mg Start J45.21 [...] Ellipta 03/30 Hx Aerosol 200-25mcg 1unit inhale /Inh s one puff Julissa Sanders MD - once a 04/07 day. rinse mouth after use. Proair 03/30 Hx Aerosol 108(90Bas 1unit inhale 2 opher Respicl e) s puffs Q4 Julissa Sanders MD - mcg/Act hours as 05/27 needed Singulair 09/08 Hx Tablets 10mg 30tab 10mg by J30.1 s mouth Julissa aSnders MD - daily at 05/27 bedtime Cetirizine [...] daily 05/27 Rinse mouth after use Metronidazole Hx Tablets 500mg Unknown /0000 - 05/27 Fluconazole Hx Tablets 150mg Unknown /0000 - 05/27 Azithromycin Hx Tablets 250mg Start Unknown /0000 Tomorrow, - Take 1 05/27 Daily Minocycline HCL Hx Capsules 100mg Eddy, /0000 Scralett Griffith M.D. 05/27 Oseltamivir Hx Capsules 75mg Unknown Phosphate /0000 - 05/27 Nitrofurantoin Hx Capsules 100mg Sheri Caballero Macro /0000 Evelin Payan NP - 05/27 Valacyclovir HCL Hx Tablets 1gm take 1 Unknown /0000 tablet - twice a 05/27 day for 10 days Phenazopyridine 00 Hx Tablets 100mg take 1 Unknown HCL /0000 tablet by - mouth 05/27 every hours Cyclobenzaprine Hx Tablets 5mg Unknown HCL /0000 - 05/27 Breo Ellipta 00 Hx Aerosol 200-25mcg inhale 1 Unknown /0000 /Inh puff once - daily 09/23 mouth after use Medications Administered in Office Medication Date Status [...] Information Available Procedures Date Code Description Status 09/23/2018 86864 Nitric Oxide Gas Determination Completed 09/23/2018 40407 Bronchodilation Responsiveness Spirometry Pre/Post Completed Bronchodil Adm 07/29/2018 70918 Nitric Oxide Gas Determination Completed 07/13/2018 21518 Allergy Injection 2 Or More Completed 07/01/2018 61327 Allergy Injection 2 Or More Completed 06/22/2018 72972 Allergy Injection 2 Or More Completed 06/15/2018 19785 Allergy Injection 2 Or More Completed 06/10/2018 87602 Allergy Injection 2 Or More Completed 06/03/2018 67775 Allergy Injection 2 Or More Completed 05/28/2018 94146 Allergy Antigens Single Or Multiple Completed 05/27/2018 55482 Nitric Oxide Gas Determination Completed 05/27/2018 72913 Bronchodilation Responsiveness Spirometry Pre/Post Completed Bronchodil Adm 03/30/2018 64760 Bronchodilation Responsiveness Spirometry Pre/Post Completed Bronchodil Adm 09/08/2017 51652 Allergy Tests Percutaneous W/ Allergenic Extracts Completed Encounters Type Date Location Provider Dx Diagnosis Office Visit 09/23/2018 10:30a EBONY Zazueta J30.1 Allergic rhinitis due to pollen J30.89 Other allergic rhinitis J45.40 Moderate persistent asthma, uncomplicated Office Visit 07/29/2018 11:00a EBONY Zazueta J30.1 Allergic rhinitis due to pollen J30.89 Other allergic rhinitis J45.40 Moderate persistent asthma, uncomplicated J01.90 Acute sinusitis, unspecified Office Visit 05/27/2018 10:00a Malvin Stoll J45.40 Moderate persistent Fenstermacher, RPA-C asthma, uncomplicated J30.1 Allergic rhinitis due to pollen J30.89 Other allergic rhinitis Office Visit 03/30/2018 2:30p Malvin Stoll J45.21 Mild intermittent Fenstermacher, RPA-C asthma with (acute) exacerbation J30.1 Allergic rhinitis due to pollen J30.89 Other allergic rhinitis R06.02 Shortness of breath Office Visit 09/08/2017 10:30a Eulalio Kidd30.1 Allergic rhinitis MD due to pollen J30.89 Other allergic rhinitis Plan of Treatment 09/23/2018 - FAUSTO Weaver30.1 Allergic rhinitis due to pollenNew Xrays:CT Sinus W/O Contrast, Ordered: 09/23/18J30.89 Other allergic iojhulptE14.40 Moderate persistent asthma, uncomplicatedComments:Patient's PFT is within normal limits and exhaled nitric oxide is normal at 11 ppb. Patient will start Z-Sheldon as prescribed for her sinuses. Patient will obtain a CT scan of her sinuses at her earliest convenience. Patient will follow up with Harish Sinus at the [facility] after obtaining her CT scan.Patient will continue Flovent for prophylaxis of her lungs and Xopenex for breakthroughchest symptoms. Patient will continue Flonase and azelastine for prophylaxis of her nose. Patient will continue Singulair as prescribed for additional prophylaxis of her chest and nose. Greater than 50% of the 25-minute visit was spent in discussion of the testing results and treatment options.Follow up:6 months, PFT and NIOX prior
[2018-10-08 11:02] VITALS: BP 117/73
--- NOTE | 2018-10-08 11:14 | UC ---
Throat Pain/Nasal Edgardo HPI - HPI Summary HPI Summary: sinus pain and pressure x 2 weeks nasal congestion , pnd, no cough , no sore throat, no fever, + headaches, dizziness , hx of chronic sinusitis , having an appointment with her ENT on 10/20 - History of Current Complaint Chief Complaint: UCGeneralIllness Stated Complaint: RECENT NOSE INJURY, PAIN & DIZZINESS Time Seen by Provider: 10/08/18 10:57 Hx Obtained From: Patient Hx Last Menstrual Period: 09/24/18 Onset/Duration: Gradual Onset, Lasting Weeks - 2, Still Present Severity: Severe Pain Intensity: 10 Cough: None Associated Signs & Symptoms: Positive: Sinus Discomfort, Nasal Discharge. Negative: Fever, Vomiting, Rash - Allergies/Home Medications Allergies/Adverse Reactions: Allergies Allergy/AdvReac Type Severity Reaction Status Date / Time Penicillins Allergy Unknown Verified 10/08/18 11:00 Reaction Details PMH/Surg Hx/FS Hx/Imm Hx - Additional Past Medical History Additional PMH: Anxiety, Depression, sinusitis Psychological History: Anxiety, Depression - Surgical History Surgical History: None - Family History Known Family History: Positive: Diabetes, Other - bipolar disorder. PTSD grandfather, [place], anxiety, depression - Social History Alcohol Use: None Substance Use Type: None Smoking Status (MU): Never Smoked Tobacco Have You Smoked in the Last Year: No - Immunization History Most Recent Influenza Vaccination: Never Most Recent Tetanus Shot: December 2015 Most Recent Pneumonia Vaccination: Never Vaccination Up to Date: Yes Review of Systems All Other Systems Reviewed And Are Negative: Yes Constitutional: Positive: Negative Skin: Positive: Negative Eyes: Positive: Negative ENT: Positive: Ear Ache, Nasal Discharge, Sinus Congestion, Sinus Pain/ Tenderness. Negative: Sore Throat Respiratory: Positive: Negative Cardiovascular: Positive: Negative Gastrointestinal: Positive: Negative Genitourinary: Positive: Negative Neurological: Positive: Headache Is Patient Immunocompromised?: No Physical Exam Triage Information Reviewed: Yes Appearance: Well-Appearing, No Pain Distress, Well-Nourished Vital Signs: Initial Vital Signs Temp 97.4 F 10/08/18 10:58 Pulse 70 10/08/18 10:58 Resp 16 10/08/18 10:58 BP 117/73 10/08/18 10:58 Pulse Ox 100 10/08/18 10:58 Vital Signs Reviewed: Yes Eye Exam: Normal Eyes: Positive: Conjunctiva Clear ENT: Positive: Normal ENT inspection, Hearing grossly normal, Pharynx normal, Pharyngeal erythema, TMs normal, Sinus tenderness Neck: Positive: Supple, Nontender, No Lymphadenopathy Respiratory: Positive: Chest non-tender, Lungs clear, Normal breath sounds Cardiovascular: Positive: RRR, No Murmur, Pulses Normal Skin Exam: Normal Throat Pain/Nasal Course/Dx - Differential Dx/Diagnosis Provider Diagnosis: Sinusitis, Vertigo Discharge - Sign-Out/Discharge Documenting (check all that apply): Patient Departure All imaging exams completed and their final reports reviewed: No Studies - Discharge Plan Condition: Stable Disposition: HOME Prescriptions: Azithromycin TAB* [Zithromax TAB (Z-BONNIE) 250 mg #6 tabs] 2 tab PO .TODAY, THEN 1 DAILY #1 bonnie predniSONE [Prednisone 20 MG TAB] 20 mg PO BID WITH MEALS #10 tablet Patient Education Materials: Sinusitis (ED), Vertigo (ED) Referrals: No Primary Care Phys,NOPCP [Primary Care Provider] - 7 Days - Billing Disposition and Condition Condition: STABLE Disposition: Home
== END 2018-10-08 11:16 | disposition home or self-care (01) ==
LOC: UCCORT 10:46
DX: J32.9 Chronic sinusitis, unspecified (principal); R42 Dizziness and giddiness; Z88.0 Allergy status to penicillin
CPT/HCPCS: 99212; G0463

== ENCOUNTER 2018-11-14 08:23 | Emergency (ER) | payer OTHER ==
--- OUTSIDE RECORDS SUMMARY | 2018-11-14 08:32 | XMS REPORT | Continuity of Care Document ---
:1985 External Reference #:[id number] Author Name Evelin Caballero NP Address [address] [place] [id number] Care Team Providers Name Role Phone Yes Primary Care Physician Unavailable Payers Date Identification Numbers Payment Provider Subscriber Effective: 2016 Policy Number: [id number] [facility] Amy Ramon Group Name: [place]/Managed Medicaid [address] PayID: [id number] [place] [address] Effective: 2018 Policy Number: [id number] Medicaid -Jacobus Amy Schuyler Yenny PayID: [id number] [address] [place] [address] Advance Directives Description No Information Available Problems Active Problems Provider Date Anxiety Evelin Caballero NP Onset: 08/06/2017 Family History Date Family Member(s) Observation Comments Father Alive Father Kidney failure Mother Alive Mother Lung cancer--in remission Social History Type Date Description Comments Sex Female Education Highest Level Completed, Master's Degree Tobacco Use Reviewed: 08/06/18 Never Smoked Cigars Tobacco Use Reviewed: 08/06/18 Never Smoked A Pipe Smoking Status Reviewed: 08/06/18 Never Smoked A Pipe Tobacco Use Reviewed: 08/06/18 Never Used Smokeless Tobacco ETOH Use Denies alcohol use Recreational Drug Use Denies Drug Use Tobacco Use Reviewed: 08/06/18 Patient has never smoked Recreational Drug Use Teaching provided regarding Naloxone/Narcan Training Available At [facility] Tattoo/Piercing Tattoo [place] Tattoo/Piercing Tattoos professionally done Tattoo/Piercing Piercings professionally done Condom Use Occasionally UNKNOWN 08/06/2018 Never E-Cigarette user Allergies, Adverse Reactions, Alerts Active Allergies Reaction Severity Comments Date Amoxicillin 08/06/2017 Medications Active Medications SIG Qnty Indications Ordering Provider Date Norethindrone take 1 tablet 84tabs Z30.41 In Ronald Lovell MD 10/20/2018 0.35mg by mouth daily. Tablets Ibuprofen 1 tab three 30tabs R10.2 In Ronald Lovell MD 10/11/2018 800mg Tablets times a day with food as needed for pain Drospirenone-Ethinyl take 1 tablet 84tabs Z30.41 In Ronald Lovell MD 09/29/2017 Estradiol by mouth daily 3-0.02mg Tablets Xanax Unknown Lexapro Unknown History Medications Azithromycin take 2 tabs by 2tabs In Ronald Lovell MD 10/25/2018 - 500mg mouth x one 11/09/2018 Tablets Drospirenone-Ethinyl one tab po daily 84tabs Z30.41 Evelin Caballero, 2018 - Estradiol PRODUCTION BOW MAKER 10/24/2018 3-0.02mg Tablets Valacyclovir HCL one tab by mouth 20tabs Z04.41 Evelin Caballero, 2017 - 1gm twice a day x 10 PRODUCTION BOW MAKER 09/29/2017 Tablets days Macrobid one capsule by 14caps N39.0 Evelin Caballreo, 08/06/2017 - 100mg Capsules mouth twice a PRODUCTION BOW MAKER 09/29/2017 day x 7 days Loryna Unknown - 08/06/2018 Immunizations Description No Information Available Vital Signs Date Vital Result Comment 11/09/2018 10:03am BP Systolic 116 mmHg BP Diastolic 68 mmHg Height 63 inches 5'3" Weight 122.00 lb BMI (Body Mass Index) 21.6 kg/m2 10/20/2018 9:58am BP Systolic 116 mmHg BP Diastolic 64 mmHg 10/11/2018 2:43pm BP Systolic 131 mmHg BP Diastolic 80 mmHg Height 63 inches 5'3" Weight 122.00 lb BMI (Body Mass Index) 21.6 kg/m2 08/06/2018 12:49pm BP Systolic 128 mmHg BP Diastolic 78 mmHg 09/29/2017 9:59am BP Systolic 125 mmHg BP Diastolic 62 mmHg Height 62 inches 5'2" Weight 113.00 lb BMI (Body Mass Index) 20.7 kg/m2 08/06/2017 12:29pm BP Systolic 118 mmHg BP Diastolic 64 mmHg Height 62 inches 5'2" Weight 117.00 lb BMI (Body Mass Index) 21.4 kg/m2 Results Test Date Facility Test Result H/L Range Note Wet Prep.... 10/11/2018 [facility] WBC Smear neg Clue Cells Vag Fluid Wet Prep neg Pauline Wet Prep neg Lactobacillus Wet Prep few Whiff Wet Prep neg Bacteria Wet Prep na PH Wet Prep 4.5 Misc Other Test no tric Laboratory test 10/11/2018 [facility] see note Abnormal 1 finding Hominis/Ureaplasma Culture Culture,Urine,Void 10/11/2018 [facility] URINE-URINE ed Final Report SEE NOTE 2 Chlamydia/N 10/11/[address] [facility] [address],Rna,Tma,Urogenital NOT DETECTED Not Detected 3 Gonorroeae Rna Tma Urogenit GC Rna,Tma,Urogen NOT DETECTED Not Detected 4 Urinalysis DIP Only.... 10/11/2018 [facility] Urine Leukocyte Esterase QN Negative Urine Nitrite QN Negative Urine Blood Negative Urine PH Negative Urine Protein Random Negative Urine Ketone Random Trace Urine Glucose QN Random Negative Chlamydia/N 08/06/[address] [facility] [address],Rna,Tma,Urogenital NOT DETECTED Not Detected 5 Gonorroeae Rna Tma Urogenit GC Rna,Tma,Urogen NOT DETECTED Not Detected 6 Chlam 09/29/2017 [facility] C.Trachomatis NOT DETECTED Not Detected 7 Trach/Neisseria Rna,Tma Gonorroeae Rna Tma N.Gonorrhoeae Rna,Tma NOT DETECTED Not Detected 8 Laboratory test finding 09/29/2017 [facility] Test negative Urine..... Herpes Simplex Virus 08/06/2017 [facility] Source OTHER-NOT GIVEN Culture W/RFX Type HSV Culture NOT ISOLATED Not Isolated Laboratory test finding 08/06/2017 [facility] Test Urine..... neg Urinalysis DIP Only.... 08/06/2017 [facility] Urine Leukocyte Esterase QN + Urine Nitrite QN N Urine Blood N Urine PH 6.0 Urine Protein Random N Urine Ketone Random N Urine Glucose QN Random N Culture,Urine,Voided 08/06/2017 [facility] URINE-VOIDED Final Report No Growth 9 1 UREAPLASMA CULT (MYCO. T) RESULT/COMMENT: Ureaplasma urealyticum not isolated MYCOPLASMA HOMINIS CULT. RESULT/COMMENT: * Presumptive Mycoplasma hominis isolated. 2 SINGLE ORGANISM LESS THAN 10,000 CFU/ML ISOLATED. THESE ORGANISMS, COMMONLY FOUND ON EXTERNAL AND INTERNAL GENITALIA, ARE CONSIDERED COLONIZERS. NO FURTHER TESTING PERFORMED. 3 This test was performed using the APTIMA COMBO2(R) Assay (GEN-PROBE(R). The analytical performance characteristics of this assay, when used to test SurePath(R) specimens have been determined by [facility]. 4 This test was performed using the APTIMA COMBO2(R) Assay (GEN-PROBE(R). The analytical performance characteristics of this assay, when used to test SurePath(R) specimens have been determined by [facility]. 5 This test was performed using the APTIMA COMBO2(R) Assay (GEN-PROBE(R). The analytical performance characteristics of this assay, when used to test SurePath(R) specimens have been determined by [facility]. 6 This test was performed using the APTIMA COMBO2(R) Assay (GEN-PROBE(R). The analytical performance characteristics of this assay, when used to test SurePath(R) specimens have been determined by [facility]. 7 This test was performed using the APTIMA COMBO2(R) Assay (GEN-PROBE(R). The analytical performance characteristics of this assay, when used to test SurePath(R) specimens have been determined by [facility]. 8 This test was performed using the APTIMA COMBO2(R) Assay (GEN-PROBE(R). The analytical performance characteristics of this assay, when used to test SurePath(R) specimens have been determined by [facility]. 9 NO GROWTH Procedures Description No Information Available Encounters Description No Information Available Plan of Treatment 11/09/2018 - Evelin Caballero, NPR21 Rash and other nonspecific skin eruptionComments:Likely minor folliculitis from shaving. HSV Cx obtained.Follow up:after pelvic ultrasound is completed.Z30.41 Encounter for surveillance of contraceptive pillsComments:Patient to continue on POP. Reviewed use of, side effects and precautions with patient who states understanding. Patient is aware of ECP.
--- OUTSIDE RECORDS SUMMARY | 2018-11-14 08:32 | XMS REPORT | Continuity of Care Document ---
:1985 External Reference #:[id number] Author Name Evelin Caballero NP Address [address] [place] [id number] Care Team Providers Name Role Phone Yes Primary Care Physician Unavailable Payers Date Identification Numbers Payment Provider Subscriber Effective: 2016 Policy Number: [id number] [facility] Amy Ramon Group Name: [place]/Managed Medicaid [address] PayID: [id number] [place] [address] Effective: 2018 Policy Number: [id number] Medicaid -Jacobus Amy Schuyler Yenny PayID: [id number] [address] [place] [address] Advance Directives Description No Information Available Problems [...] Teaching provided regarding Naloxone/Narcan Training Available At [facility] Tattoo/Piercing Tattoo [place] Tattoo/Piercing Tattoos professionally [...] 84tabs Z30.41 Evelin Caballero, 2018 - Estradiol FLANGING ROLL OPERATOR 10/24/2018 3-0.02mg Tablets Valacyclovir HCL one tab by mouth 20tabs Z04.41 Evelin Caballero, 2017 - 1gm twice a day x 10 FLANGING ROLL OPERATOR 09/29/2017 Tablets days Macrobid one capsule by 14caps N39.0 Evelin Caballero, 08/06/2017 - 100mg Capsules mouth twice a FLANGING ROLL OPERATOR 09/29/2017 day x 7 days Loryna Unknown [...] Result H/L Range Note Wet Prep.... 10/11/2018 [facility] WBC Smear neg Clue Cells Vag Fluid [...] Not Detected 4 Urinalysis DIP Only.... 10/11/2018 [facility] Urine Leukocyte Esterase QN Negative Urine Nitrite [...] Not Detected 8 Laboratory test finding 09/29/2017 [facility] Test negative Urine..... Herpes Simplex Virus 08/06/2017 [facility] Source OTHER-NOT GIVEN Culture W/RFX Type HSV Culture NOT ISOLATED Not Isolated Laboratory test finding 08/06/2017 [facility] Test Urine..... neg Urinalysis DIP Only.... 08/06/2017 [facility] Urine Leukocyte Esterase QN + Urine Nitrite [...] Caballero, NPR21 Rash and other nonspecific skin eruptionNew Labs:Herpes Simplex Virus Culture W/RFX Type, Ordered: 11/09/18Comments: control end of visit:
--- OUTSIDE RECORDS SUMMARY | 2018-11-14 08:32 | XMS REPORT | Continuity of Care Document ---
:1985 External Reference #:[id number] Author Name Judith Montenegro NP Address [address] [place] [id number] Care Team Providers Name Role Phone Yes Primary Care Physician Unavailable Payers Date Identification Numbers Payment Provider Subscriber Effective: 2016 Policy Number: [id number] [facility] Amy Ramon PayID: [id number] [address] [place] [address] Effective: 2018 Policy Number: [id number] Medicaid -Jacobus Amy Ramon PayID: [id number] [address] [place] [address] Advance Directives Description No Information Available Problems Date Description Provider Status Onset: 08/06/2017 Anxiety Evelin Caballero NP Active Family History Date Family Member(s) Observation Comments [...] Teaching provided regarding Naloxone/Narcan Training Available At [facility] Tattoo/Piercing Tattoo [place] Tattoo/Piercing Tattoos professionally done Tattoo/Piercing Piercings professionally done Condom Use Occasionally UNKNOWN 08/06/2018 Never E-Cigarette user Allergies, Adverse Reactions, Alerts Date Description Reaction Status Severity Comments 08/06/2017 Amoxicillin Active Medications Medication Date Status Form Strength Qnty SIG Indications Ordering Provider Norethindrone 10/20/ Active Tablets 0.35mg 84tabs take 1 Z30.41 In [facility] 2018 tablet by MD Nas mouth daily. Ibuprofen 10/11/ Active Tablets 800mg 30tabs 1 tab R10.2 In [facility] 2019 three MD Nas times a day with food as needed for pain Drospirenone-Eth 08/06/ Active Tablets 3-0.02mg 84tabs one tab po Z30.41 Evelin Payan inyl Estradiol 2018 daily RUSSELL Caballero Drospirenone-Eth 09/29/ Active Tablets 3-0.02mg 28tabs take 1 Z30.41 In [facility] inyl Estradiol 2017 tablet by MD Nas mouth daily Please schedule an annual exam Xanax / Active Unknown 0000 Lexapro / Active Unknown 0000 Valacyclovir HCL 08/06/ Hx Tablets 1gm 20tabs one tab by Z04.41 Evelin Payan 2017 - mouth Federico, 09/29/ twice a SENIOR BEHAVIORAL SCIENTIST 2017 day x 10 days Macrobid 08/06/ Hx Capsules 100mg 14caps one N39.0 Evelin Payan 2017 - capsule by Federico, 09/29/ mouth SENIOR BEHAVIORAL SCIENTIST 2018 twice a day x 7 days Loryna / Hx Unknown 0000 - 2018 Immunizations Description No Information Available Vital Signs Date Vital Result Comment 10/20/2018 9:58am BP Systolic 116 mmHg BP [...] Result H/L Range Note Wet Prep.... 10/11/2018 [facility] WBC Smear neg Clue Cells Vag Fluid Wet Prep neg Pauline Wet Prep neg Lactobacillus Wet Prep few Whiff Wet Prep neg Bacteria Wet Prep na PH Wet Prep 4.5 Misc Other Test no tric Laboratory test 10/11/2018 [facility] <pending> finding Hominis/Ureaplasma Culture Culture,Urine,Voided 10/11/2018 [facility] URINE-URINE Final Report SEE NOTE 1 Chlamydia/N 10/11/[address] [facility] [address],Rna,Tma,Urogenital NOT DETECTED Not Detected 2 Gonorroeae Rna Tma Urogenit GC Rna,Tma,Urogen NOT DETECTED Not Detected 3 Urinalysis DIP Only.... 10/11/2018 [facility] Urine Leukocyte Esterase QN Negative Urine Nitrite QN Negative Urine Blood Negative Urine PH Negative Urine Protein Random Negative Urine Ketone Random Trace Urine Glucose QN Random Negative Chlamydia/N 08/06/[address] [facility] [address],Rna,Tma,Urogenital NOT DETECTED Not Detected 4 Gonorroeae Rna Tma Urogenit GC Rna,Tma,Urogen NOT DETECTED Not Detected 5 Chlam 09/29/2017 [facility] C.Trachomatis NOT DETECTED Not Detected 6 Trach/Neisseria Rna,Tma Gonorroeae Rna Tma N.Gonorrhoeae Rna,Tma NOT DETECTED Not Detected 7 Laboratory test finding 09/29/2017 [facility] Test negative Urine..... Herpes Simplex Virus 08/06/2017 [facility] OTHER-NOT GIVEN Culture W/RFX Type HSV Culture NOT ISOLATED Not Isolated Laboratory test finding 08/06/2017 [facility] Test Urine..... neg Urinalysis DIP Only.... 08/06/2017 [facility] Urine Leukocyte Esterase QN + Urine Nitrite QN N Urine Blood N Urine PH 6.0 Urine Protein Random N Urine Ketone Random N Urine Glucose QN Random N Culture,Urine,Voided 08/06/2017 [facility] URINE-VOIDED Final Report No Growth 8 1 SINGLE ORGANISM LESS THAN 10,000 CFU/ML ISOLATED. THESE ORGANISMS, COMMONLY FOUND ON EXTERNAL AND INTERNAL GENITALIA, ARE CONSIDERED COLONIZERS. NO FURTHER TESTING PERFORMED. 2 This test was performed using the APTIMA COMBO2(R) Assay (GEN-PROBE(R). The analytical performance characteristics of this assay, when used to test SurePath(R) specimens have been determined by [facility]. 3 This test was performed using the [...] test SurePath(R) specimens have been determined by [facility]. 8 NO GROWTH Procedures Description No Information Available Encounters Description No Information Available Plan of Treatment 10/20/2018 - Judith Montenegro, NPR10.2 Pelvic and perineal painNew Xrays: Ultrasound Transvaginal Non-OB, Ordered: 10/20/18Ultrasound Pelvic Nonob Complete, Ordered: 10/20/18Comments:Will schedule follow appointment after pelvic vzuurmuhchK52.41 Encounter for surveillance of contraceptive pillsNew Medication:Norethindrone 0.35 mg - take 1 tablet by mouth daily.Comments:Finish the last week of current OBC, then start POP, stop taking immediately if any signs of sudden SOB, arm or leg pain, severe abdominal pain and present to the ERN94.10 Unspecified [id number] Dysmenorrhea, unspecified
--- OUTSIDE RECORDS SUMMARY | 2018-11-14 08:32 | XMS REPORT | Continuity of Care Document ---
:1985 External Reference #:[id number] Author Name Evelin Caballero NP Address [address] [place] [phone] Care Team Providers Name Role Phone Yes Primary Care Physician Unavailable Payers Date Identification Numbers Payment Provider Subscriber Effective: 2016 Policy Number: [id number] [facility] Amy Ramon Group Name: [place]/Managed Medicaid [address] PayID: [id number] [place] [address] Effective: 2018 Policy Number: [id number] Medicaid -Jacobus Amy Schuyler Yenny PayID: [id number] [address] [place] [address] Advance Directives Description No Information Available Problems [...] Teaching provided regarding Naloxone/Narcan Training Available At [facility] Tattoo/Piercing Tattoo [place] Tattoo/Piercing Tattoos professionally [...] 84tabs Z30.41 Evelin Caballero, 2018 - Estradiol REIMBURSEMENT MANAGER 10/24/2018 3-0.02mg Tablets Valacyclovir HCL one tab by mouth 20tabs Z04.41 Evelin Caballero, 2017 - 1gm twice a day x 10 REIMBURSEMENT MANAGER 09/29/2017 Tablets days Macrobid one capsule by 14caps N39.0 Evelin Caballero, 08/06/2017 - 100mg Capsules mouth twice a REIMBURSEMENT MANAGER 09/29/2017 day x 7 days Loryna Unknown [...] Result H/L Range Note Wet Prep.... 10/11/2018 [facility] WBC Smear neg Clue Cells Vag [...] Not Detected 4 Urinalysis DIP Only.... 10/11/2018 [facility] Urine Leukocyte Esterase QN Negative Urine [...] Not Detected 8 Laboratory test finding 09/29/2017 [facility] Test negative Urine..... Herpes Simplex Virus 08/06/2017 [facility] Source OTHER-NOT GIVEN Culture W/RFX Type HSV Culture NOT ISOLATED Not Isolated Laboratory test finding 08/06/2017 [facility] Test Urine..... neg Urinalysis DIP Only.... 08/06/2017 [facility] Urine Leukocyte Esterase QN + Urine [...] Caballero, NPR21 Rash and other nonspecific skin eruptionComments: control end of visit:
--- NOTE | 2018-11-14 08:35 | UC ---
UC General HPI - HPI Summary HPI Summary: Patient is a 33 year old female , who present today to the urgent care with for respiratory symptoms since yesterday. She started noticing body aches and fatigue and sore throat .Had intermittent fevers felt febrile but did not take any temperature. She has cough which is dry and nonproductive. Does have some constipation. Denies any urinary or vaginal symptoms. No sick contacts (she works at [employer]). No skin rash. Denies any chest pain or shortness of breath . Denies any abdominal pain , nausea or vomiting , diarrhea or constipation. - History of Current Complaint Stated Complaint: BODYACHES,LETHARGIC(?MONO) Time Seen by Provider: 11/14/18 08:26 Hx Obtained From: Patient Hx Last Menstrual Period: 09/24/18 - Allergy/Home Medications Allergies/Adverse Reactions: Allergies Allergy/AdvReac Type Severity Reaction Status Date / Time Gadolinium-Containing Allergy Unknown Verified 11/14/18 08:31 Contrast Medi Reaction Details Penicillins Allergy Unknown Verified 11/14/18 08:31 Reaction Details adivan Allergy Unknown Uncoded 11/14/18 08:31 Reaction Details PMH/Surg Hx/FS Hx/Imm Hx - Additional Past Medical History Additional PMH: Anxiety/depression Migraine Previously Healthy: Yes - Surgical History Surgical History: Yes Surgery Procedure, Year, and Place: EAR TUBES AT AGE 4;. TONSILLECTOMY AGE 7; - Family History Known Family History: Positive: Diabetes, Other - bipolar disorder. PTSD grandfather, [place], anxiety, depression - Social History Alcohol Use: None Substance Use Type: None Smoking Status (MU): Never Smoked Tobacco Have You Smoked in the Last Year: No - Immunization History Most Recent Influenza Vaccination: Never Most Recent Tetanus Shot: December 2015 Most Recent Pneumonia Vaccination: Never Vaccination Up to Date: Yes Review of Systems All Other Systems Reviewed And Are Negative: Yes Constitutional: Positive: Fever, Fatigue Skin: Positive: Negative Eyes: Positive: Negative ENT: Positive: Sore Throat Respiratory: Positive: Negative. Negative: Cough Cardiovascular: Positive: Negative Gastrointestinal: Positive: Negative Genitourinary: Positive: Negative Motor: Positive: Negative Neurovascular: Positive: Negative Musculoskeletal: Positive: Negative Neurological: Positive: Negative Is Patient Immunocompromised?: No Physical Exam - Summary Physical Exam Summary: Physical Exam: Const: Appears well. No signs of apparent distress present. Alert and oriented x 3. Musculo: Walks with a normal gait. Head/Face: Atraumatic, normocephalic on inspection. Eyes: EOMI and PERRLA in both eyes. Conjunctivae clear. No discharge noted ENT: Hearing normal, TM normal appearing bilaterally No tenderness to palpation on maxillary and frontal sinus. No significant pharyngeal erythema or exudates . Uvula is midline. There are small white patches noted on the soft palate Mild anterior cervical nontender ymphadenopathy noted Respiratory: Respirations are unlabored. Lungs clear to auscultation bilaterally, no wheezing , rhonchi or rales noted . CVS: Regular rate and Rhythm, S1S2 normal , no murmurs identified. Extremities: Peripheral circulation is grossly normal. Pulses 2+ Abdomen : Soft non tender , nondistended , Bowel sounds present . No guarding , rebound tenderness or rigidity noted. Skin: No lesions or rash located on the upper extremities or on the lower extremities. Neuro: Cranial nerves II to XII intact, motor and sensory intact. DTR Intact bilaterally. Mood is normal. Affect is normal. Triage Information Reviewed: Yes Vital Signs Reviewed: Yes Course/Dx - Course Course Of Treatment: During the visit today, we obtained a rapid flu test and strep test which were both negative. We discussed about treatment checking for infectious mononucleosis but has it is a blood test she declined. 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 She does have some oropharyngeal thrush and plan to treat it with nystatin. We discussed the findings and further plan. I will prescribe the medication to the pharmacy . Patient expressed understanding . - Diagnoses Provider Diagnosis: Viral syndrome, Oropharyngeal candidiasis Discharge - Sign-Out/Discharge Documenting (check all that apply): Patient Departure All imaging exams completed and their final reports reviewed: No Studies - Discharge Plan Condition: Stable Disposition: HOME Prescriptions: Nystatin SUSPENSION ORAL SYR* 100,000 units PO QID 14 Days #1 bottle Patient Education Materials: Mononucleosis (ED), Oral Candidiasis (ED), Viral Syndrome (ED) Referrals: No Primary Care Phys,NOPCP [Primary Care Provider] - 1 Week [facility] PHYSICIAN REFERRAL [Outside] - 1 Week Additional Instructions: Please start taking the medication as prescribed to the pharmacy . 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 Return to Urgent care / ER if symptoms get worse. - Billing Disposition and Condition Condition: STABLE Disposition: Home
[2018-11-14 08:37] VITALS: BP 112/66
[2018-11-14 09:09] LABS: Influenza A Molecular NEGATIVE (Negative); Influenza B Molecular NEGATIVE (Negative)
== END 2018-11-14 09:33 | disposition home or self-care (01) ==
LOC: UCCORT 08:23
DX: B34.9 Viral infection, unspecified (principal); B37.0 Candidal stomatitis; R05 Cough; J02.9 Acute pharyngitis, unspecified; R50.9 Fever, unspecified; F41.9 Anxiety disorder, unspecified; F32.9 Major depressive disorder, single episode, unspecified; G43.909 Migraine, unspecified, not intractable, without status migrainosus; Z88.0 Allergy status to penicillin; Z88.8 Allergy status to other drugs, medicaments and biological substances; Z91.041 Radiographic dye allergy status
CPT/HCPCS: 87651; 99212; G0463

== ENCOUNTER 2019-05-04 09:31 | Emergency (ER) | payer OTHER ==
[2019-05-04 10:00] VITALS: BP 107/72
--- NOTE | 2019-05-04 10:36 | UC ---
Complaint Female HPI - HPI Summary HPI Summary: 33-year-old sexually active female who has had burning on urination and frequency over the past 24 hours. She denies any fever or chills. She states that her boyfriend has been traveling for about 2 months and just came home so she has been very sexually active. She denies any abnormal vaginal discharge. - History Of Current Complaint Chief Complaint: UCGU Stated Complaint: PERSONAL Time Seen by Provider: 05/04/19 10:01 Hx Obtained From: Patient Hx Last Menstrual Period: 04/22/19 ?: No Onset/Duration: Gradual Onset Timing: Intermittent Severity Initially: Mild Severity Currently: Moderate Pain Intensity: 8 Character: Burning Aggravating Factor(s): Urination Alleviating Factor(s): Nothing Associated Signs And Symptoms: Positive: Negative. Negative: Vaginal Bleeding/ Discharge, Vaginal Discharge, Genital Swelling, Genital Blisters - Allergies/Home Medications Allergies/Adverse Reactions: Allergies Allergy/AdvReac Type Severity Reaction Status Date / Time Gadolinium-Containing Allergy Unknown Verified 03/21/19 15:27 Contrast Medi Reaction Details lorazepam [From Ativan] Allergy See Comment Verified 05/04/19 10:02 Penicillins Allergy Unknown Verified 03/21/19 15:27 Reaction Details PMH/Surg Hx/FS Hx/Imm Hx Previously Healthy: Yes - Surgical History Surgical History: Yes Surgery Procedure, Year, and Place: EAR TUBES AT AGE 4;. TONSILLECTOMY AGE 7; - Family History Known Family History: Positive: Diabetes, Other - bipolar disorder. PTSD grandfather, [place], anxiety, depression - Social History Occupation: Employed Full-time Lives: With Family Alcohol Use: None Substance Use Type: None Smoking Status (MU): Never Smoked Tobacco Have You Smoked in the Last Year: No - Immunization History Most Recent Influenza Vaccination: Never Most Recent Tetanus Shot: December 2015 Most Recent Pneumonia Vaccination: Never Vaccination Up to Date: Yes Review of Systems All Other Systems Reviewed And Are Negative: Yes Genitourinary: Positive: Dysuria, Frequency, Urgency. Negative: Vaginal/Penile Burning, Vaginal/Penile Itching, Vaginal/Penile Discharge, Vaginal/Penile Pain, Vaginal/Penile Tenderness Is Patient Immunocompromised?: No Physical Exam Triage Information Reviewed: Yes Appearance: Well-Appearing, No Pain Distress, Well-Nourished Vital Signs: Initial Vital Signs Temp 97.5 F 05/04/19 09:56 Pulse 72 05/04/19 09:56 Resp 16 05/04/19 09:56 BP 107/72 05/04/19 09:56 Pulse Ox 100 05/04/19 09:56 Vital Signs Reviewed: Yes Respiratory: Positive: Lungs clear, Normal breath sounds, No respiratory distress, No accessory muscle use Cardiovascular: Positive: RRR, No Murmur, Pulses Normal, Brisk Capillary Refill Abdomen Description: Positive: Nontender, No Organomegaly, Soft. Negative: CVA Tenderness (R), CVA Tenderness (L), Distended, Guarding, Hepatomegaly, McBurney' s Point Tenderness, Splenomegaly Bowel Sounds: Positive: Present Musculoskeletal Exam: Normal Neurological Exam: Normal Psychological Exam: Normal Skin Exam: Normal Complaint Female Dx - Course Course Of Treatment: Urinalysis showed evidence of a urinary tract infection. I'm also going to test the urine for gonorrhea and chlamydia. She is to increase fluids. I'm going to treat her with Bactrim DS one tab by mouth twice a day 5 days. She's to wipe from front to back, avoid perfumed toilet paper and soaps. Always urinate after sex. - Differential Dx/Diagnosis Provider Diagnosis: UTI (urinary tract infection) Discharge ED - Sign-Out/Discharge Documenting (check all that apply): Patient Departure All imaging exams completed and their final reports reviewed: No Studies - Discharge Plan Condition: Good Disposition: HOME Prescriptions: Phenazopyridine TAB* [Pyridium 100 mg TAB*] 100 mg PO TID 2 Days #6 tab Sulfamethox/Trimethoprim DS* [Bactrim DS 800/160 TAB*] 1 tab PO BID 5 Days #10 tab Patient Education Materials: Urinary Tract Infection in Women (DC) Referrals: Aziza Puentes NP [Primary Care Provider] - Additional Instructions: Increase fluids. Take the antibiotic with food. The Pyridium will turn your urine orange. Follow-up with your primary care provider if no improvement in 4 or 5 days. Go to the emergency room if you develop any fever, chills, back pain , vomiting or worsening symptoms. - Billing Disposition and Condition Condition: GOOD Disposition: Home
[2019-05-05 13:52] LABS: Chlamydia trachomatis NAA Negative (Negative); Neisseria gonorrhoeae (GC) NAA Negative (Negative)
--- NOTE | 2019-05-07 07:35 | UC ---
- Progress Note Progress Note: + E coli on bactrim no change ljj 05/07/19 Course/Dx - Diagnoses Provider Diagnoses: UTI (urinary tract infection) Discharge ED - Sign-Out/Discharge Documenting (check all that apply): Post-Discharge Follow Up All imaging exams completed and their final reports reviewed: No Studies - Discharge Plan Condition: Good Disposition: HOME Prescriptions: Phenazopyridine TAB* [Pyridium 100 mg TAB*] 100 mg PO TID 2 Days #6 tab Sulfamethox/Trimethoprim DS* [Bactrim DS 800/160 TAB*] 1 tab PO BID 5 Days #10 tab Patient Education Materials: Urinary Tract Infection in Women (DC) Referrals: Aziza Puentes NP [Primary Care Provider] - Additional Instructions: Increase fluids. Take the antibiotic with food. The Pyridium will turn your urine orange. Follow-up with your primary care provider if no improvement in 4 or 5 days. Go to the emergency room if you develop any fever, chills, back pain , vomiting or worsening symptoms. - Billing Disposition and Condition Condition: GOOD Disposition: Home
== END 2019-05-04 10:38 | disposition home or self-care (01) ==
LOC: UCCORT 09:31
DX: N39.0 Urinary tract infection, site not specified (principal); Z88.0 Allergy status to penicillin; Z88.8 Allergy status to other drugs, medicaments and biological substances; Z91.041 Radiographic dye allergy status
CPT/HCPCS: 81003; 84702; 87077; 87086; 87186; 87491; 87591; 99212; G0463

== ENCOUNTER 2019-06-05 16:54 | Emergency (ER) | payer OTHER ==
--- NOTE | 2019-06-05 17:03 | UC ---
Throat Pain/Nasal Edgardo HPI - HPI Summary HPI Summary: Sore throat for a few days but now with urinary symptoms. No fever. She states the last time she felt this way she had a UTI. - History of Current Complaint Stated Complaint: SORE THROAT/FATIGUE/BODY ACHES/DIZZINESS Time Seen by Provider: 06/05/19 17:00 Hx Obtained From: Patient Hx Last Menstrual Period: 04/22/19 ?: No Onset/Duration: Gradual Onset Severity: Mild Cough: None Associated Signs & Symptoms: Positive: Negative - Allergies/Home Medications Allergies/Adverse Reactions: Allergies Allergy/AdvReac Type Severity Reaction Status Date / Time Gadolinium-Containing Allergy Unknown Verified 06/05/19 17:01 Contrast Medi Reaction Details lorazepam [From Ativan] Allergy See Comment Verified 06/05/19 17:01 Penicillins Allergy Unknown Verified 06/05/19 17:01 Reaction Details PMH/Surg Hx/FS Hx/Imm Hx Previously Healthy: Yes Psychological History: Anxiety, Depression - Surgical History Surgical History: Yes Surgery Procedure, Year, and Place: EAR TUBES AT AGE 4;. TONSILLECTOMY AGE 7; - Family History Known Family History: Positive: Diabetes, Other - bipolar disorder. PTSD grandfather, [place], anxiety, depression - Social History Occupation: Employed Full-time Alcohol Use: None Substance Use Type: None Smoking Status (MU): Never Smoked Tobacco Have You Smoked in the Last Year: No - Immunization History Most Recent Influenza Vaccination: Never Most Recent Tetanus Shot: December 2015 Most Recent Pneumonia Vaccination: Never Vaccination Up to Date: Yes Review of Systems All Other Systems Reviewed And Are Negative: Yes Genitourinary: Positive: Frequency Neurological: Positive: Other - Fatigue Psychological: Positive: Anxious - Pt states she's always anxious when at the doctor's. Is Patient Immunocompromised?: No Physical Exam Triage Information Reviewed: Yes Appearance: Well-Appearing, No Pain Distress, Well-Nourished Vital Signs Reviewed: Yes Eyes: Positive: Conjunctiva Clear ENT: Positive: Pharynx normal, TMs normal, Uvula midline Neck: Positive: Supple, Nontender, No Lymphadenopathy Respiratory: Positive: Lungs clear, Normal breath sounds, No respiratory distress, No accessory muscle use Cardiovascular: Positive: RRR, No Murmur, Pulses Normal, Brisk Capillary Refill Abdomen Description: Positive: Nontender, No Organomegaly, Soft. Negative: CVA Tenderness (R), CVA Tenderness (L), Hepatomegaly, Splenomegaly Bowel Sounds: Positive: Present Musculoskeletal Exam: Normal Neurological Exam: Normal Psychological Exam: Normal Skin Exam: Normal Throat Pain/Nasal Course/Dx - Course Course Of Treatment: Urinalysis positive for leukocytes Will treat with Bactrim DS BID for 5 days. Increase fluids. - Differential Dx/Diagnosis Provider Diagnosis: UTI (urinary tract infection) Discharge ED - Sign-Out/Discharge Documenting (check all that apply): Patient Departure All imaging exams completed and their final reports reviewed: No Studies - Discharge Plan Condition: Good Disposition: HOME Prescriptions: Sulfamethox/Trimethoprim DS* [Bactrim DS 800/160 TAB*] 1 tab PO BID 5 Days #10 tab Patient Education Materials: Urinary Tract Infection in Women (DC) Referrals: Aziza Puentes NP [Primary Care Provider] - Additional Instructions: Increase fluids, Follow up with your own doctor in 3-4 days if no improvement. - Billing Disposition and Condition Condition: GOOD Disposition: Home - Attestation Statements Provider Attestation: Per institutional requirements, I have reviewed the chart, however, I was not consulted specifically or made aware of this patient by the midlevel provider. I did not personally evaluate, interact with , or disposition this patient.
[2019-06-05 17:06] VITALS: BP 121/69
== END 2019-06-05 17:22 | disposition home or self-care (01) ==
LOC: UCCORT 16:54
DX: N39.0 Urinary tract infection, site not specified (principal); J02.9 Acute pharyngitis, unspecified; R53.83 Other fatigue; R52 Pain, unspecified; R42 Dizziness and giddiness; Z88.0 Allergy status to penicillin; Z88.8 Allergy status to other drugs, medicaments and biological substances; Z91.041 Radiographic dye allergy status
CPT/HCPCS: 81003; 87086; 99212; G0463

== ENCOUNTER 2019-09-02 08:52 | Emergency (ER) | payer OTHER ==
[2019-09-02 09:20] VITALS: BP 112/71
[2019-09-02 09:55] LABS: Influenza A Molecular Negative (Negative); Influenza B Molecular Negative (Negative)
--- NOTE | 2019-09-02 10:16 | UC ---
FLU HPI - HPI Summary HPI Summary: 33 yo with onset of myalgias, fatigue and sore throat 2 days ago, but without fever or cough. Nauseated but no vomiting. She reports UTI's with fairly minimal symptoms. Chart reviewed: she had + E. coli infection in April, but no growth on culture in May when her symptoms were similar. She takes ocp daily, no missed pills, but used plan B as her partner did not withdraw in time. - History of Current Complaint Chief Complaint: UCRespiratory Stated Complaint: FLU SYMPTOMS Time Seen by Provider: 09/02/19 09:31 Hx Obtained From: Patient Hx Last Menstrual Period: 08/09/19 Onset/Duration: Sudden Onset Severity Currently: Mild Severity Initially: Moderate Pain Intensity: 8 Associated Signs & Symptoms: Positive: Myalgia, Sore Throat - Risk Factors Influenza Risk Factors: Negative - Allergy/Home Medications Allergies/Adverse Reactions: Allergies Allergy/AdvReac Type Severity Reaction Status Date / Time Gadolinium-Containing Allergy Unknown Verified 09/02/19 09:05 Contrast Medi Reaction Details lorazepam [From Ativan] Allergy See Comment Verified 09/02/19 09:05 Penicillins Allergy Unknown Verified 09/02/19 09:05 Reaction Details Home Medications: Home Medications Acetaminophen [Tylenol Extra Strength] 1,000 mg PO PRN 09/02/19 [History] Ascorbic Acid/Multivit-Min [Emergen-C Vitamin C] 1 morgan PO PRN 09/02/19 [History] Magnesium Oxide [Magnesium] 250 mg PO BID 09/02/19 [History Confirmed 09/02/19] PMH/Surg Hx/FS Hx/Imm Hx Previously Healthy: Yes Psychological History: Anxiety, Depression - Surgical History Surgical History: Yes Surgery Procedure, Year, and Place: EAR TUBES AT AGE 4;. TONSILLECTOMY AGE 7; - Family History Known Family History: Positive: Diabetes, Renal Disease - father, Other - bipolar disorder. Mother has lung CA. - Social History Occupation: Employed Full-time Lives: With Family Alcohol Use: None Substance Use Type: None Smoking Status (MU): Never Smoked Tobacco Have You Smoked in the Last Year: No - Immunization History Most Recent Influenza Vaccination: Never Most Recent Tetanus Shot: December 2015 Most Recent Pneumonia Vaccination: Never Vaccination Up to Date: Yes Review of Systems All Other Systems Reviewed And Are Negative: Yes Constitutional: Positive: Fatigue - sleeping a lot Skin: Positive: Negative ENT: Positive: Sore Throat Respiratory: Negative: Shortness Of Breath, Cough Cardiovascular: Negative: Palpitations, Chest Pain Gastrointestinal: Negative: Abdominal Pain Genitourinary: Positive: Frequency Motor: Positive: Negative Neurovascular: Positive: Negative Musculoskeletal: Positive: Myalgia Neurological: Positive: Negative Psychological: Positive: Negative Physical Exam Triage Information Reviewed: Yes Appearance: Well-Appearing, No Pain Distress Vital Signs: Initial Vital Signs Temp 98.7 F 09/02/19 09:09 Pulse 60 09/02/19 09:09 Resp 16 09/02/19 09:09 BP 112/71 09/02/19 09:09 Pulse Ox 100 09/02/19 09:09 ENT: Positive: Pharynx normal, TMs normal Neck: Positive: Supple, Nontender, No Lymphadenopathy Respiratory: Positive: Lungs clear, Normal breath sounds, No respiratory distress Cardiovascular: Positive: RRR, No Murmur Abdomen Description: Positive: Nontender, No Organomegaly, Soft Musculoskeletal Exam: Normal Neurological Exam: Normal Psychological Exam: Normal Skin Exam: Normal Diagnostics - Laboratory Lab Results: Urine with 1+ leuks, urine HCG negative. Flu negative. Flu Course/Dx - Course Course Of Treatment: Discussed, and she wants to initiate antibioitc due to symptoms. Reviewed past hx of UTI's. - Differential Dx/Diagnosis Differential Diagnosis/HQI/PQRI: Influenza, Other - UTI Provider Diagnosis: UTI (urinary tract infection) Discharge ED - Sign-Out/Discharge Documenting (check all that apply): Patient Departure All imaging exams completed and their final reports reviewed: No Studies - Discharge Plan Condition: Stable Disposition: HOME Prescriptions: Sulfamethox/Trimethoprim DS* [Bactrim DS 800/160 TAB*] 1 tab PO BID #10 tab Patient Education Materials: Urinary Tract Infection in Women (ED) Referrals: Aziza Puentes NP [Primary Care Provider] - Additional Instructions: Ensure a high intake of fluids, and use ibuprofen as needed for aches and pains. Urine culture is pending, and in the meantime you will start use of bactrim for possible urinary infection. You will be called if a change of antibiotic is needed. - Billing Disposition and Condition Condition: STABLE Disposition: Home
== END 2019-09-02 10:43 | disposition home or self-care (01) ==
LOC: UCCORT 08:52
DX: N39.0 Urinary tract infection, site not specified (principal); R53.83 Other fatigue; J02.9 Acute pharyngitis, unspecified; M79.10 Myalgia, unspecified site; Z91.041 Radiographic dye allergy status; Z88.0 Allergy status to penicillin; Z88.8 Allergy status to other drugs, medicaments and biological substances
CPT/HCPCS: 81003; 84702; 87086; 99212; G0463

== ENCOUNTER 2019-10-10 09:14 | Emergency (ER) | payer OTHER ==
[2019-10-10 10:53] VITALS: BP 121/70
--- NOTE | 2019-10-10 10:57 | UC ---
Throat Pain/Nasal Edgardo HPI - HPI Summary HPI Summary: 34-year-old female with cold symptoms for one day. She denies any fever. - History of Current Complaint Chief Complaint: UCGeneralIllness Stated Complaint: NAUSEA/BILAT EARS THROAT/PERES Time Seen by Provider: 10/10/19 10:56 Hx Obtained From: Patient Hx Last Menstrual Period: 10/07/2019 ?: No Onset/Duration: Gradual Onset Severity: Mild Pain Intensity: 7 Cough: None Associated Signs & Symptoms: Positive: Nasal Discharge - Allergies/Home Medications Allergies/Adverse Reactions: Allergies Allergy/AdvReac Type Severity Reaction Status Date / Time Gadolinium-Containing Allergy Unknown Verified 10/10/19 10:52 Contrast Medi Reaction Details lorazepam [From Ativan] Allergy See Comment Verified 10/10/19 10:52 Penicillins Allergy Unknown Verified 10/10/19 10:52 Reaction Details Home Medications: Home Medications Alprazolam XR (NF) [Xanax XR (NF)] 1.5 mg PO BID 06/27/17 [History Confirmed ] Escitalopram Oxalate [Lexapro 10 mg] 2.5 mg PO DAILY 06/27/17 [History Confirmed 10/10/19] ALPRAZolam TAB* [Xanax TAB*] 1 tab PO BID PRN 03/21/19 [History Confirmed ] Acetaminophen [Tylenol Extra Strength] 500 mg PO ONCE PRN 09/02/19 [History Confirmed 10/10/19] Magnesium Oxide [Magnesium] 250 mg PO BID 09/02/19 [History Confirmed 10/10/19] Progesterone, Micronized [Progesterone] 1 dose PO DAILY 10/10/19 [History Confirmed 10/10/19] PMH/Surg Hx/FS Hx/Imm Hx Previously Healthy: Yes Neurological History: Migraine - Patient states that her headache is more related to her recent diagnosis of PMDD Psychological History: Anxiety - Surgical History Surgical History: Yes Surgery Procedure, Year, and Place: EAR TUBES AT AGE 4;. TONSILLECTOMY AGE 7; - Family History Known Family History: Positive: Diabetes, Renal Disease - father, Other - bipolar disorder. Mother has lung CA. - Social History Alcohol Use: None Substance Use Type: None Smoking Status (MU): Never Smoked Tobacco Have You Smoked in the Last Year: No - Immunization History Most Recent Influenza Vaccination: Never Most Recent Tetanus Shot: December 2015 Most Recent Pneumonia Vaccination: Never Vaccination Up to Date: Yes Review of Systems All Other Systems Reviewed And Are Negative: Yes ENT: Positive: Sore Throat - Minimal sore throat yesterday which is better today., Ear Ache - Bilateral earaches., Nasal Discharge - Clear nasal coryza Is Patient Immunocompromised?: No Physical Exam Triage Information Reviewed: Yes Appearance: Well-Appearing, No Pain Distress, Well-Nourished Vital Signs: Initial Vital Signs Temp 97.3 F 10/10/19 10:45 Pulse 54 10/10/19 10:45 Resp 18 10/10/19 10:45 BP 121/70 10/10/19 10:45 Pulse Ox 100 10/10/19 10:45 Vital Signs Reviewed: Yes Eyes: Positive: Conjunctiva Clear ENT: Positive: Pharynx normal, Nasal congestion, Nasal drainage - Clear nasal coryza, TMs normal, Uvula midline Neck: Positive: Supple, Nontender, No Lymphadenopathy Respiratory: Positive: Lungs clear, Normal breath sounds, No respiratory distress, No accessory muscle use Cardiovascular: Positive: RRR, No Murmur, Pulses Normal, Brisk Capillary Refill Musculoskeletal Exam: Normal Neurological Exam: Normal Psychological Exam: Normal Skin Exam: Normal Throat Pain/Nasal Course/Dx - Course Course Of Treatment: The patient is comfortable here. She has not had a fever. I believe this is more a viral upper respiratory illness and not influenza. She has no risk factors for COVID. She prefers not to have a flu test. - Differential Dx/Diagnosis Provider Diagnosis: URI (upper respiratory infection) Discharge ED - Sign-Out/Discharge Documenting (check all that apply): Patient Departure All imaging exams completed and their final reports reviewed: No Studies - Discharge Plan Condition: Good Disposition: HOME Patient Education Materials: Upper Respiratory Infection (ED) Referrals: Aziza Puentes NP [Primary Care Provider] - Additional Instructions: Increase fluids, [id number] cold medications as we discussed. Follow up with your primary care provider if no improvement in 3 or 4 days. - Billing Disposition and Condition Condition: GOOD Disposition: Home
== END 2019-10-10 11:19 | disposition home or self-care (01) ==
LOC: UCCORT 09:14
DX: J06.9 Acute upper respiratory infection, unspecified (principal); F41.9 Anxiety disorder, unspecified; Z88.0 Allergy status to penicillin; Z91.041 Radiographic dye allergy status; Z88.8 Allergy status to other drugs, medicaments and biological substances; Z79.899 Other long term (current) drug therapy
CPT/HCPCS: 99211; G0463